=== PATIENT | female | born 1995 | race Caucasian/White ===

== ENCOUNTER 2016-05-16 11:07 | Outpatient (CLI) | payer OTHER ==
--- NOTE | 2016-05-16 11:47 | Non Stress Test Report ---
Non Stress Test Datetime Report Generated by CPN: 05/16/2016 11:47 DEMOGRAPHIC EGA NST: 34.3 INDICATION Indication for Study: Ordered by Provider MONITORING Monitor Explained: Monitor Explained; Test Explained; Patient Verbalized Understanding Time on Monitor: 05/16/2016 11:17 Time off Monitor: 05/16/2016 11:44 NST Duration: 27 NST INTERVENTIONS NST Interventions: PO Hydration Physician Notified NST: H Alex CNM BABY A: [id number] BABY A Movement : Present Contraction Frequency : none FHR Baseline : 135 Accelerations : 15X15 Decelerations : None Variability : Moderate 6-25bpm NST Review: Meets Criteria for Reactive NST NST Review and Verified By : Dave Toth RN NST Results: Reactive NST REPORT Report Trigger: Send Report
--- NOTE | 2016-05-19 11:11 | Antepartum Discharge Summary ---
Antepartum DC Datetime Report Generated by CPN: 05/19/2016 11:11 DIET/ACTIVITY/RESTRICTIONS Diet: Regular (05/16/2016 11:37:Deangelo Anitha, RN) Activity: Normal Activity (05/16/2016 11:37:Deangelo Anitha, RN) Activity Restrictions: No Exercising (05/16/2016 11:37:Deangelo Anitha, RN) TEACHING/INSTRUCTIONS/REFERRALS Instructions Given To: PT (05/16/2016 11:37:Deangelo Anitha, RN) Instructions Understood: Patient Verbalized Understanding; Support Person Verbalized Understanding (05/16/2016 11:37:Deangelo Welsh RN) Referrals: None (05/16/2016 11:37:Deangelo Welsh RN) Educational Materials- Other: [employer] (05/16/2016 11:37:Deangelo Welsh RN) DISCHARGE INFORMATION Discharged AMA: No (05/16/2016 11:37:Deangelo Welsh RN) Discharge Date/Time: 05/16/2016 11:50 (05/16/2016 11:37:Deangelo Welsh RN) Discharged To: Home (05/16/2016 11:37:Deangelo Welsh RN) Discharge Provider Name: Alex (05/16/2016 11:37:Deangelo Welsh RN) Accompanied By: Friend (05/16/2016 11:37:Deangelo Welsh RN) Discharge Method: Ambulatory (05/16/2016 11:37:Deangelo Welsh RN) Condition: Stable (05/16/2016 11:37:Deangelo Welsh RN) FOLLOW UP INFORMATION Follow Up With: [facility] (05/16/2016 11:37:Deangelo Welsh RN) Follow Up On: As Scheduled (05/16/2016 11:37:Deangelo Welsh RN) Follow Up Phone Number: [facility] - (05/16/2016 11:37:Deangelo Welsh RN) Comments: Pt discharged for reactive NST. Pt denies complaints, no distress noted. Ambulates without difficulty, agrees with plan of care, and understands instructions on when to return to hospital and s/s to report. (05/16/2016 11:37:Deangelo Welsh RN) GENERAL INSTR-CALL PROVIDER IF: Contractions: Contractions or cramps become more frequent than 8 in one hour or 4 in 20 minutes; Regular painful contractions every 5 minutes or less for one hour. Time your contractions from the beginning of one to the beginning of the next (05/16/2016 11:37:Deangelo Welsh RN) Pressure: Pressure in your vagina or lower abdomen that may feel like the baby is pushing down (05/16/2016 11:37:Deangelo Welsh RN) Period Like Cramps: Period-like cramps or low dull backache that may come and go (05/16/2016 11:37:Deangelo Welsh RN) Cramps/Diarrhea: Abdominal cramps that may be accompanied by diarrhea (05/16/2016 11:37:Deangelo Welsh RN) Gush of Fluid/Blood: Gush of fluid or blood from your vagina (it is normal to have spotting after vaginal exam or intercourse) (05/16/2016 11:37:Deangelo Welsh RN) Vaginal Discharge: Change in the type or amount of vaginal discharge (05/16/2016 11:37:Deangelo Welsh RN) Decreased Movement: Your baby is not moving as much as usual- 4 movements in 1 hour after drinking and resting on side (05/16/2016 11:37:Deangelo Welsh RN) Temperature: Temperature greater than 100.0(F) orally (05/16/2016 11:37:Deangelo Welsh RN) Hypertension Signs/Symptoms: Severe headache which is not relieved 30 minutes after taking Tylenol(Acetaminophen); Blurry vision or spots before your eyes; Severe heartburn or pain on the upper right side of your abdomen that is not relieved by an antacid; Increased swelling in your face, hands or feet (05/16/2016 11:37:Deangelo Welsh RN) Urinary Output: Decreased urinary output or dark colored urine (05/16/2016 11:37:Deangelo Welsh RN) ADDITIONAL INSTRUCTIONS N/V [place]/Crackers: Keep dry toast/crackers with you to munc on (05/16/2016 11:37:Deangelo Welsh RN) N/V Frequent Meals: Eat small frequent meals (05/16/2016 11:37:Deangelo Welsh RN) N/V Empty Stomach: Try to keep something in your stomach (don't let your stomach get empty) (05/16/2016 11:37:Deangelo Welsh RN) N/V Time Getting Up: Take your time getting up (05/16/2016 11:37:Deangelo Welsh RN) N/V Avoid Smells: Avoid smells that make you feel sick (05/16/2016 11:37:Deangelo Welsh RN) Travel Seatbelts: Wear seatbelts or safety/lap belts (05/16/2016 11:37:Deangelo Welsh RN) Travel Walk Frequently: Walk frequently, every 1-2 hours (05/16/2016 11:37:Deangelo Welsh RN) Travel Comfort Clothes: Wear clothing that does not constrict and comfortable shoes (05/16/2016 11:37:Deangelo Welsh RN) Travel Light Snack: Keep a light snack (e.g. dry crackers) with you at all times to prevent nausea (05/16/2016 11:37:Deangelo Welsh RN) Travel Hydration: Drink plenty of water, low sodium and noncaffeinated drinks (05/16/2016 11:37:Deangelo Welsh RN) Travel Medications: DO NOT take any medication that is not approved by your physician first (05/16/2016 11:37:Deangelo Welsh RN) Travel PN Records: Always keep a copy of your medical record with you just in case (05/16/2016 11:37:Deangelo Welsh RN) Edema Avoid Standing: Avoid standing for long periods, keep legs up when you can (05/16/2016 11:37:Deangelo Welsh RN) Edema Rest on Side: When resting, lie on your side (left is best) (05/16/2016 11:37:Deangelo Welsh RN) Edema Limit Sodium: Limit the amount of salty foods you eat (05/16/2016 11:37:Deangelo Welsh RN) Edema Support Hose: Try to wear support hose as much as possible (05/16/2016 11:37:Deangelo Welsh RN) Exercise Overheating: Avoid situations that would cause you to become overheated (05/16/2016 11:37:Deangelo Welsh RN) Exercise Weather: Exercise outdoors only if the weather is reasonable and not too hot (05/16/2016 11:37:Deangelo Welsh RN) Exercise Exertion: Do not over exert yourself when you exercise (05/16/2016 11:37:Deangelo Welsh RN) Exercise Hydration: Drink plenty of fluids, especially water (05/16/2016 11:37:Deangelo Welsh RN) Exercise Support: Wear good support hose, bra and shoes when exercising (05/16/2016 11:37:Deangelo Welsh RN) Varicose Veins Instructions: Do not stand for long periods of time (05/16/2016 11:37:Deangelo Welsh RN) Varicose Veins Elevate Sit: Try to keep your legs elevated when you are sitting (05/16/2016 11:37:Deangelo Welsh RN) Varicose Veins Elevate Lying: When lying down, keep your legs elevated (05/16/2016 11:37:Deangelo Welsh RN) Varicise Veins Non Binding: When wearing stockings or socks, make sure they are not too tight and bind your legs (05/16/2016 11:37:Deangelo Welsh RN) Varicose Veins Support: Wear support hose/stockings at all times (05/16/2016 11:37:Deangelo Welsh RN) Varicose Veins Periodic Move: If you have a job where you sit a lot, get up periodically and walk around (05/16/2016 11:37:Deangelo Welsh RN)
--- NOTE | 2016-05-19 11:12 | L&D General Admission ---
General Admit Datetime Report Generated by CPN: 05/19/2016 11:11 INFORMATION Patient Age: 21 (05/16/2016 11:08:QS system process) EDC: 06/24/2016 00:00 (05/16/2016 11:20:Deangelo Anitha, RN) : 1 (05/16/2016 11:20:Deangelo Anitha, RN) Para: 0 (05/16/2016 11:20:Deangelo Anitha, RN) CARE Height (in): 61 (05/16/2016 11:19:QS system process) ALLERGIES Medication Allergies: No Known Allergies (05/16/2016) (05/16/2016 11:19:QS system process) DEMOGRAPHICS Address: [address] [place] [id number] (05/16/2016 11:08:QS system process) Zipcode: [address] (05/16/2016 11:08:QS system process) Home (05/16/2016 11:08:QS system process) N: [id number] (05/16/2016 11:08:QS system process) Next of Kin Name: ELVIRA CASTELLANOS (05/16/2016 11:08:QS system process) Next of Kin (05/16/2016 11:08:QS system process) Next of Kin Relationship: SPO (05/16/2016 11:08:QS system process) Date of : 1995 (05/16/2016 11:08:QS system process) Marital Status: (05/16/2016 11:08:QS system process) Sex: Female (05/16/2016 11:08:QS system process) Race: (05/16/2016 11:08:QS system process) Ethnicity: Non- or (05/16/2016 11:08:QS system process) L[employer]-Day: [employer]ism (05/16/2016 11:08:QS system process)
--- NOTE | 2016-05-19 11:12 | L&D Discharge Summary ---
OB Discharge Summary Datetime Report Generated by CPN: 05/19/2016 11:12 DISCHARGE DIAGNOSIS Diagnosis/Symptoms: Other Diagnoses/Symptoms Other: Reactive NST Gestation: 34.3 Parity: 0 DIET/ACTIVITY/RESTRICTIONS Diet: Regular Activity: Normal Activity Activity Restrictions: No Exercising TEACHING/INSTRUCTIONS/REFERRALS Instructions Given To: PT Instructions Understood: Patient Verbalized Understanding; Support Person Verbalized Understanding Referrals: None Educational Materials- Other: [employer] DISCHARGE INFORMATION Discharged AMA: No Discharge Date/Time: 05/16/2016 11:50 Discharged To: Home Discharge Provider Name: Alex Accompanied By: Friend Discharge Method: Ambulatory Condition: Stable FOLLOW UP INFORMATION Follow Up With: [facility] Follow Up On: As Scheduled Follow Up Phone Number: [facility] - Comments: Pt discharged for reactive NST. Pt denies complaints, no distress noted. Ambulates without difficulty, agrees with plan of care, and understands instructions on when to return to hospital and s/s to report. GENERAL INSTR-CALL PROVIDER IF: Contractions: Contractions or cramps become more frequent than 8 in one hour or 4 in 20 minutes; Regular painful contractions every 5 minutes or less for one hour. Time your contractions from the beginning of one to the beginning of the next Pressure: Pressure in your vagina or lower abdomen that may feel like the baby is pushing down Period Like Cramps: Period-like cramps or low dull backache that may come and go Cramps/Diarrhea: Abdominal cramps that may be accompanied by diarrhea Gush of Fluid/Blood: Gush of fluid or blood from your vagina (it is normal to have spotting after vaginal exam or intercourse) Vaginal Discharge: Change in the type or amount of vaginal discharge Decreased Movement: Your baby is not moving as much as usual- 4 movements in 1 hour after drinking and resting on side Temperature: Temperature greater than 100.0(F) orally
== END 2016-05-16 11:49 | disposition home or self-care (01) ==
LOC: LC 11:07
PROVIDERS: ATTEND Obstetrics & Gynecology
PROC: 4A1HXCZ Monitoring of Products of Conception, Cardiac Rate, External Approach (ICD-10-PCS; principal; 2016-05-16)
DX: Z34.93 Encounter for supervision of normal pregnancy, unspecified, third trimester (principal); Z36 Encounter for antenatal screening of mother; Z3A.34 34 weeks gestation of pregnancy
CPT/HCPCS: 59025

== ENCOUNTER 2016-06-06 11:11 | Outpatient (CLI) | payer OTHER ==
--- NOTE | 2016-06-06 11:46 | Non Stress Test Report ---
Non Stress Test Datetime Report Generated by CPN: 06/06/2016 11:46 DEMOGRAPHIC EGA NST: 37.3 INDICATION Indication for Study: Ordered by Provider Indication for Study (NST) Other: repeat NST MONITORING Monitor Explained: Monitor Explained; Test Explained; Patient Verbalized Understanding Time on Monitor: 06/06/2016 11:20 Time off Monitor: 06/06/2016 11:42 NST Duration: 22 NST INTERVENTIONS NST Interventions: PO Hydration Physician Notified NST: Dr. Cortes BABY A: [id number] BABY A Movement : Present Contraction Frequency : 0 FHR Baseline : 125 Accelerations : 15X15 Decelerations : None Variability : Moderate 6-25bpm NST Review: Meets Criteria for Reactive NST NST Review and Verified By : CHACHA Schaeffer Results: Reactive NST REPORT Report Trigger: Send Report
== END 2016-06-06 11:44 | disposition home or self-care (01) ==
LOC: LC 11:11
PROVIDERS: ATTEND Obstetrics & Gynecology
PROC: 4A1HXCZ Monitoring of Products of Conception, Cardiac Rate, External Approach (ICD-10-PCS; principal; 2016-06-06)
DX: Z34.93 Encounter for supervision of normal pregnancy, unspecified, third trimester (principal); Z36 Encounter for antenatal screening of mother; Z3A.37 37 weeks gestation of pregnancy
CPT/HCPCS: 59025

== ENCOUNTER 2016-06-16 19:50 | Inpatient (IN) | payer OTHER ==
[2016-06-16 20:23] LABS: AMNISURE (ROM) POSITIVE (NEGATIVE)
[2016-06-16] MEDS ORDERED: RINGERS SOLUTION,LACTATED 1,000 ML IV ONE (20:25)
[2016-06-16] MEDS: RINGERS SOLUTION,LACTATED 1,000 ML IV PRN (20:30)
[2016-06-16 20:41] LABS: APPEARANCE,URINE SLIGHTLY-CLOUDY; BILIRUBIN,URINE NEGATIVE (NEGATIVE); GLUCOSE, URINE 150 mg/dL (NEGATIVE); KETONES,URINE NEGATIVE (NEGATIVE); LEUKOCYTE ESTERASE,URINE NEGATIVE (NEGATIVE); NITRITE,URINE NEGATIVE (NEGATIVE); PROTEIN,URINE 30 mg/dL (NEGATIVE); URINE SPECIFIC GRAVITY 1.014; UROBILINOGEN,URINE NEGATIVE mg/dL (<2.0)
[2016-06-16 20:57] LABS: URINE BARBITURATES SCREEN NEGATIVE; URINE METHADONE SCREEN NEGATIVE; URINE OPIATES LOW NEGATIVE; URINE PHENCYCLIDINE SCREEN NEGATIVE
[2016-06-16 21:57] LABS: ABSOLUTE EOSINOPHILS # (AUTO) 0.1 10^3/uL (0.0-0.6); ABSOLUTE LYMPHOCYTES (AUTO) 1.8 10^3/uL (0.5-4.7); ABSOLUTE MONOCYTES (AUTO) 0.6 10^3/uL (0.1-1.4); ABSOLUTE NEUT (AUTO) 8.9 10^3/uL (1.7-8.2); BASOPHILS % (AUTO) 0.3 % (0-2); EOSINOPHILS % (AUTO) 1.1 % (0-6); HEMATOCRIT 34.7 % (36.0-47.0); HEMOGLOBIN 11.8 g/dL (12.0-15.5); HGB HCT DIFFERENCE 0.7; LYMPHOCYTES % (AUTO) 15.9 % (13-45); MEAN CORPUSCULAR HEMOGLOBIN 32.3 pg (27.0-33.4); MEAN CORPUSCULAR HGB CONC 34.1 g/dL (32.0-36.0); MEAN CORPUSCULAR VOLUME 95 fl (80-97); MONOCYTES % (AUTO) 5.1 % (3-13); RED BLOOD COUNT 3.67 10^6/uL (3.72-5.28); RED CELL DISTRIBUTION WIDTH 14.6 % (11.5-14.0); SEGMENTED NEUTROPHILS % (AUTO) 77.6 % (42-78); WHITE BLOOD COUNT 11.4 10^3/uL (4.0-10.5)
--- NOTE | 2016-06-16 22:01 | L&D Flow Sheet ---
LD Flowsheet Datetime Report Generated by CPN: 06/16/2016 22:00 Datetime: 06/16/2016 21:49 Temperature (F): 98.3 (Marily Marlatt, RN) Temperature (C): 36.8 (QS system process) Datetime: 06/16/2016 21:46 NBP Sys/Kelsi/Mean (mmHg): 104 (QS system process) : 58 (QS system process) : 76 (QS system process) Pulse: 82 (QS system process) Datetime: 06/16/2016 21:30 Monitor Mode: External (Marily Marlatt, RN) Frequency (min): irreg (Marily Marlatt, RN) Quality: Mild (Marily Marlatt, RN) Duration (sec): 60-120 (Marily Marlatt, RN) Resting Tone (Palpate): Relaxed (Marily Marlatt, RN) Monitor Mode: External US (Marily Marlatt, RN) FHR Baseline Rate : 140 (Marily Marlatt, RN) Variability: Moderate 6-25 bpm (Marily Marlatt, RN) Accelerations: Prolonged (Marily Marlatt, RN) Decelerations: None (Marily Marlatt, RN) Datetime: 06/16/2016 21:12 I/O Interventions: Up to BR (Marily Marlatt, RN) Datetime: 06/16/2016 21:06 NBP Sys/Kelsi/Mean (mmHg): 115 (QS system process) : 62 (QS system process) : 81 (QS system process) Pulse: 90 (QS system process) Datetime: 06/16/2016 21:00 Monitor Mode: External; Palpation (Marily Moscoso RN) Quality: Mild (Marily Moscoso RN) Resting Tone (Palpate): Relaxed (Marily Moscoso RN) Contraction Comments: TOCO adjusted to help find contractions, none noted on monitor (Marily Moscoso RN) Monitor Mode: External US (Marily Moscoso RN) FHR Baseline Rate : 135 (Marily Moscoso RN) Variability: Moderate 6-25 bpm (Marily Moscoso, RN) Accelerations: 15X15 (Marily Moscoso, RN) Decelerations: None (Marily Moscoso RN) Datetime: 06/16/2016 20:49 Monitor Interventions for UA: [place] Adjusted (Marily Moscoso RN) Datetime: 06/16/2016 20:35 NBP Sys/Kelsi/Mean (mmHg): 123 (QS system process) : 79 (QS system process) : 95 (QS system process) Pulse: 88 (QS system process) Datetime: 06/16/2016 20:30 Monitor Mode: External; Palpation (Marily Moscoso RN) Quality: Mild (Marily Moscoso RN) Resting Tone (Palpate): Relaxed (Marily Moscoso RN) Contraction Comments: unable to trace contractions (Marily Moscoso RN) Monitor Mode: External US (Marily Moscoso RN) FHR Baseline Rate : 140 (Marily Moscoso RN) Variability: Moderate 6-25 bpm (Marily Moscoso RN) Accelerations: 15X15 (Marily Moscoso RN) Comments: spontaneous decel (Marily Moscoso RN) IV/Blood Work: IV Started; IV Bolus Started (Annotations: 18g LFA) (Hailey Mercer) Datetime: 06/16/2016 20:28 Dilatation (cm): 1.0 (Marily Moscoso RN) Effacement (%): 70 (Marily Moscoso RN) Station: -3 (Marily Moscoso RN) Exam by: Dr. Holloway (Marily Moscoso RN) Communication: RN at Bedside; Provider at Bedside (Marily Moscoso RN) Datetime: 06/16/2016 20:14 Patient Position/Activity: Left Lateral; Low Fowlers (Marily Moscoso RN) Datetime: 06/16/2016 20:13 Patient Position/Activity: Hands-Knees (Marily Marlatt, RN) Datetime: 06/16/2016 20:12 Patient Position/Activity: Left Lateral (Marily Marlatt, RN) Datetime: 06/16/2016 20:04 NBP Sys/Kelsi/Mean (mmHg): 115 (QS system process) : 71 (QS system process) : 85 (QS system process) Pulse: 105 (QS system process) Datetime: 06/16/2016 20:02 Patient Position/Activity: Right Lateral (Marily Moscoso RN) Datetime: 06/16/2016 20:00 Pain Scale: 2 (Marily Moscoso RN) Pain Presence: Intermittent (Marily Moscoso RN) Pain Type: Cramping; Ache (Marily Moscoso RN) Pain Location: Back (Marily Moscoso RN) Pain Goal: 1 (Marily Moscoso RN) Pain Relief Measures: Comfort Measures (Marily Moscoso RN) Pain Coping: Talking Through Contractions (Marily Moscoso RN) Vaginal Bleeding: None (Marily Moscoso RN) Level of Consciousness: Fully Conscious (Marily Moscoso RN) DTR's/Clonus: DTRs 2+; No Clonus (Marily Moscoso RN) Headache: Denies (Marily Moscoso RN) Breath Sounds, Left: Clear and Equal (Marily Moscoso RN) Breath Sounds, Right: Clear and Equal (Marily Moscoso RN) Nausea/Vomiting: Denies (Marily Moscoso RN) RUQ Epigastric Pain: Denies (Marily Moscoso RN) Instructional Method: Demo; Verbal; Patient Instructed; Family/Support Person Instructed; Verbalized Understanding (Marily Moscoso RN) Plan of Care: Plan of Care Discussed; Vaginal Delivery; Labor (Marily Moscoso RN) Unit Routine: [place] to Room; Call Wall; Bed; Monitoring (Marily Moscoso RN) Labor/Induction: Labor Stages; Interventions (Marily Moscoso RN) Pain Management: Pain Scale/Goals (Marily Moscoso RN)
--- NOTE | 2016-06-16 22:04 | L&D Progress Notes ---
PROGRESS NOTES Datetime Report Generated by CPN: 06/16/2016 22:04 PROGRESS NOTE Impression: Normal Progression of Labor Procedures: Sterile Vag Exam Plan: Continue Present Management; Induction; Cervical Ripening Informed Consent Obtained: Vaginal Delivery; Risks, Benefits and Alternatives Discussed Informed Consent Obtained: Vaginal Delivery; Section Delivery; Induction of Labor; Risks, Benefits and Alternatives Discussed Vital Signs : Reviewed; Within Normal Limits Comment: IOL at 38+6ega for PROM at term. Cooks catheter placed for cervical ripening. Pitocin per low dose protocol initiated for cervical ripening and IOL as well. Pelvis adequate for TAWNY. EFW 7.5#. Anticipate . VAGINAL EXAM Dilatation: 1 Dilatation: 1 Effacement: 70 Effacement: 70 Station: -2 Station: -2 Contractions: irreg Contractions: irreg MEMBRANES Pooling: Positive [place] Results: Positive Membranes: Ruptured Amniotic Fluid Color: Clear FETUS A FHR - Baseline: 130 Monitoring: External US Variability: Moderate 6-25bpm Accelerations: 15X15 Decelerations: None FHR Category: Category I Presentation: Vertex SIGNATURE SIGNATURE: [id number] SIGNATURE: [id number] SIGNATURE: [id number] Signature: with User ID: [email or web address]
[2016-06-16] MEDS ORDERED: NALBUPHINE HCL INJ 10 MG/1 ML AMPULE INJ ONE (22:07)
[2016-06-16] MEDS ORDERED: OXYTOCIN/NORMAL SALINE 20 UNIT/1,000 ML RTUINJ ONE (22:08)
[2016-06-16] MEDS: OXYTOCIN/NORMAL SALINE 20 UNIT/1,000 ML RTUINJ IV PRN (22:22)
[2016-06-17] MEDS ORDERED: FENTANYL/BUPIVACAINE/NS/PF 200 MCG/100 ML RTUINJ EPI ONE (03:53)
[2016-06-17] MEDS ORDERED: BUPIVACAINE HCL 0.25 % INJ/PF (2.5 MG/1 ML) 30 ML VIAL ONE (03:53)
[2016-06-17] MEDS ORDERED: EPHEDRINE SULFATE INJ 50 MG/1 ML AMPULE ONE (03:53)
[2016-06-17] MEDS ORDERED: BENZOIN/ALOE VERA/STORAX/TOLU TINCTURE 60 ML TP PRN (04:33)
[2016-06-17] MEDS ORDERED: EPHEDRINE SULFATE INJ 50 MG/1 ML AMPULE IV PRN (04:33)
[2016-06-17] MEDS ORDERED: EPHEDRINE SULFATE INJ 50 MG/1 ML AMPULE IV ONE (04:33)
[2016-06-17] MEDS ORDERED: BUPIVACAINE HCL 0.25 % INJ/PF (2.5 MG/1 ML) 30 ML VIAL INFIL ONE (04:33)
[2016-06-17] MEDS ORDERED: MISOPROSTOL 0.2 MG TABLET ONE ×2 (05:35→10:19)
[2016-06-17] MEDS ORDERED: LIDOCAINE 1% INJ-PF (10 MG/ML) 30 ML SDV ONE (05:35)
[2016-06-17] MEDS ORDERED: OXYTOCIN/NORMAL SALINE 0 UNIT/0 ML RTUINJ ONE (05:35)
[2016-06-17] MEDS: OXYTOCIN/NORMAL SALINE 20 UNIT/1,000 ML RTUINJ IV PRN ×2 (05:45→05:46)
[2016-06-17] MEDS: RINGERS SOLUTION,LACTATED 1,000 ML IV PRN ×2 (05:45→05:46)
[2016-06-17] MEDS: FENTANYL/BUPIVACAINE/NS/PF 100 ML EPI PRN ×2 (05:45→05:46)
--- NOTE | 2016-06-17 08:02 | L&D Flow Sheet ---
LD Flowsheet Datetime Report Generated by CPN: 06/17/2016 08:00 Datetime: 06/17/2016 07:55 Monitor Interventions for UA: [place] Adjusted (Ellen Toth, RN) Datetime: 06/17/2016 07:52 Monitor Interventions for UA: [place] Adjusted (Ellen Toth, RN) Datetime: 06/17/2016 07:51 NBP Sys/Kelsi/Mean (mmHg): 97 (QS system process) : 50 (QS system process) : 68 (QS system process) Pulse: 96 (QS system process) LaborFlag: Labor (QS system process) Datetime: 06/17/2016 07:45 Monitor Mode: External (Ellen Toth RN) Frequency (min): 1-3 (Ellen Toth RN) Quality: Mild/Moderate (Ellen Toth RN) Duration (sec): 40-70 (Ellen Toth RN) Resting Tone (Palpate): Relaxed (Ellen Toth RN) Monitor Mode: External US (Ellen Toth RN) FHR Baseline Rate : 135 (Ellen Toth RN) Variability: Moderate 6-25 bpm (Ellen Toth RN) Accelerations: 15X15 (Ellen Toth RN) Decelerations: None (Ellen Toth RN) Pitocin (milliunit): Pitocin Remains (milliunits) @ 8 (Ellen Toth RN) Patient Position/Activity: Left Extreme; Peanut Ball (Ellen Toth RN) Datetime: 06/17/2016 07:30 Monitor Mode: External (Ellen Toth RN) Frequency (min): 1-2 (Ellen Toth RN) Quality: Mild/Moderate (Ellen Toth RN) Duration (sec): 40-60 (Ellen oTth RN) Resting Tone (Palpate): Relaxed (Ellen Toth RN) Monitor Mode: External US (Ellen Toth RN) FHR Baseline Rate : 140 (Ellen Toth RN) Variability: Moderate 6-25 bpm (Ellen Toth RN) Accelerations: 15X15 (Ellen Toth RN) Decelerations: None (Ellen Toth RN) Level of Consciousness: Fully Conscious (Ellen Toth RN) DTR's/Clonus: DTRs 2+; No Clonus (Ellen Toth, RN) Headache: Denies (Ellen Toth RN) Breath Sounds, Left: Clear and Equal (Ellen Toth RN) Breath Sounds, Right: Clear and Equal (Ellen Toth RN) Nausea/Vomiting: Denies (Ellen Toth RN) RUQ Epigastric Pain: Denies (Ellen Toth RN) Pitocin (milliunit): Pitocin Remains (milliunits) @ 8 (Ellen Toth RN) Datetime: 06/17/2016 07:28 Monitor Interventions for UA: [place] Adjusted (Ellen Toth, RN) Datetime: 06/17/2016 07:22 NBP Sys/Kelsi/Mean (mmHg): 94 (QS system process) : 54 (QS system process) : 66 (QS system process) Pulse: 103 (QS system process) LaborFlag: Labor (QS system process) Datetime: 06/17/2016 07:21 Patient Position/Activity: Peanut Ball; Right Extreme (Ellen Toth, RN) Datetime: 06/17/2016 07:19 Monitor Interventions for UA: [place] Adjusted (Ellen Toth, RN) Datetime: 06/17/2016 07:15 Monitor Mode: External (Ellen Toth RN) Frequency (min): 1-2 (Ellen Toth RN) Quality: Mild/Moderate (Ellen Toth, RN) Duration (sec): 40-60 (Ellen Toth RN) Duration Criteria: Less than Two 120 Second Contractions (Ellen Toth RN) Pattern: Normal: <= 5 Contractions in 10 Minutes (Ellen Toth, RN) Resting Tone (Palpate): Relaxed (Ellen Toth, RN) Monitor Mode: External US (Ellen Toth, RN) FHR Baseline Rate : 140 (Ellen Toth RN) Variability: Moderate 6-25 bpm (Ellen Toth, RN) Accelerations: 10X10 (Ellen Toth, RN) Decelerations: None (Ellen Toth, RN) Pitocin (milliunit): Pitocin Remains (milliunits) @ 8 (Ellen Toth RN) Datetime: 06/17/2016 07:00 Respirations: 18 (Hailey Mercer) Monitor Mode: External; Palpation (Hailey Mercer) Monitor Interventions for UA: [place] Adjusted (Hailey Mercer) Frequency (min): 2-3 (Hailey Mercer) Quality: Moderate (Hailey Mercer) Duration (sec): 40-60 (Hailey Mercer) Resting Tone (Palpate): Relaxed (Hailey Mercer) Monitor Mode: External US (Hailey Mercer) Monitor Interventions for FHR: Ultrasound Adjusted (Hailey Mercer) FHR Baseline Rate : 140 (Hailey Mercer) FHR Baseline Changes: No Baseline Change (Hailey Mercer) Variability: Moderate 6-25 bpm (Hailey Mercer) Accelerations: 15X15 (Hailey Mercer) Decelerations: None (Hailey Mercer) Pitocin (milliunit): Pitocin Remains (milliunits) @ (Annotations: 8) (Hailey Mercer) Patient Position/Activity: High Fowlers (Hailey Mercer) LaborFlag: Labor (QS system process) Datetime: 06/17/2016 06:51 NBP Sys/Kelsi/Mean (mmHg): 119 (QS system process) : 61 (QS system process) : 83 (QS system process) Pulse: 110 (QS system process) LaborFlag: Labor (QS system process) Datetime: 06/17/2016 06:45 Respirations: 18 (Hailey Mercer) Monitor Mode: External; Palpation (Hailey Mercer) Frequency (min): 2-3 (Hailey Mercer) Quality: Moderate (Hailey Mercer) Duration (sec): 40-60 (Hailey Mercer) Resting Tone (Palpate): Relaxed (Hailey Mercer) Monitor Mode: External US (Hailey Mercer) Monitor Interventions for FHR: Ultrasound Adjusted (Hailey Mercer) FHR Baseline Rate : 140 (Hailey Mercer) FHR Baseline Changes: No Baseline Change (Hailey Mercer) Variability: Moderate 6-25 bpm (Hailey Mercer) Accelerations: 15X15 (Hailey Mercer) Decelerations: Variable (Hailey Mercer) Pitocin (milliunit): Pitocin Remains (milliunits) @ (Annotations: 8 ) (Hailey Mercer) Patient Position/Activity: High Fowlers (Hailey Mercer) LaborFlag: Labor (QS system process) Datetime: 06/17/2016 06:30 Respirations: 18 (Hailey Mercer) Monitor Mode: External; Palpation (Hailey Mercer) Frequency (min): 2-3 (Hailey Mercer) Quality: Moderate (Hailey Mercer) Duration (sec): 40-70 (Hailey Mercer) Resting Tone (Palpate): Relaxed (Hailey Mecrer) Monitor Mode: External US (Hailey Mercer) Monitor Interventions for FHR: Ultrasound Adjusted (Hailey Mercer) FHR Baseline Rate : 140 (Hailey Mercer) FHR Baseline Changes: No Baseline Change (Hailey Mercer) Variability: Moderate 6-25 bpm (Hailey Mercer) Accelerations: 15X15 (Hailey Mercer) Decelerations: Variable (Hailey Mercer) Pitocin (milliunit): Pitocin Remains (milliunits) @ (Annotations: 8) (Hailey Mercer) Patient Position/Activity: High Fowlers (Hailey Mercer) LaborFlag: Labor (QS system process) Datetime: 06/17/2016 06:21 NBP Sys/Kelsi/Mean (mmHg): 115 (QS system process) : 66 (QS system process) : 83 (QS system process) Pulse: 103 (QS system process) LaborFlag: Labor (QS system process) Datetime: 06/17/2016 06:15 Respirations: 18 (Hailey Mercer) Monitor Mode: External; Palpation (Hailey Mercer) Monitor Interventions for UA: [place] Adjusted (Hailey Mercer) Frequency (min): 2-3 (Hailey Mercer) Quality: Moderate (Hailey Mercer) Duration (sec): 40-50 (Hailey Mercer) Resting Tone (Palpate): Relaxed (Hailey Mercer) Monitor Mode: External US (Hailey Mercer) Monitor Interventions for FHR: Ultrasound Adjusted (Hailey Mercer) FHR Baseline Rate : 140 (Hailey Mercer) FHR Baseline Changes: No Baseline Change (Hailey Merecr) Variability: Moderate 6-25 bpm (Hailey Mercer) Accelerations: 15X15 (Hailey Mercer) Decelerations: None (Hailey Mercer) Pitocin (milliunit): Pitocin Remains (milliunits) @ (Annotations: 8) (Hailey Mercer) Patient Position/Activity: High Fowlers (Hailey Mercer) LaborFlag: Labor (QS system process) Datetime: 06/17/2016 06:00 Pitocin (milliunit): Pitocin Remains (milliunits) @ (Annotations: 8) (Hailey Mercer) Patient Position/Activity: High Fowlers (Hailey Mercer) Datetime: 06/17/2016 05:59 Dilatation (cm): 8.0 (Hailey Mercer) Effacement (%): 80 (Hailey Mercer) Station: 0 (Hailey Mercer) Exam by: Rdaha Mercer Rn (Hailey Mercer) Datetime: 06/17/2016 05:57 Respirations: 18 (Hailey Mercer) Monitor Mode: External; Palpation (Hailey Mercer) Monitor Interventions for UA: [place] Adjusted (Hailey Mercer) Frequency (min): 2-4 (Hailey Mercer) Quality: Moderate (Hailey Mercer) Duration (sec): 40-60 (Hailey Mercer) Resting Tone (Palpate): Relaxed (Hailey Mercer) Monitor Mode: External US (Hailey Mercer) Monitor Interventions for FHR: Ultrasound Adjusted (Hailey Mercer) FHR Baseline Rate : 150 (Hailey Mercer) Variability: Moderate 6-25 bpm (Hailey Mercer) Accelerations: 15X15 (Hailey Mercer) Decelerations: Variable (Hailey Mercer) Comments: rn at the bedside for eval, maternal repositioning (Hailey Mercer) Patient Position/Activity: Right Lateral (Hailey Mercer) LaborFlag: Labor (QS system process) Datetime: 06/17/2016 05:51 NBP Sys/Kelsi/Mean (mmHg): 115 (QS system process) : 54 (QS system process) : 77 (QS system process) Pulse: 96 (QS system process) LaborFlag: Labor (QS system process) Datetime: 06/17/2016 05:45 Respirations: 18 (Hailey Mercer) Monitor Mode: External; Palpation (Hailey Mercer) Monitor Interventions for UA: [place] Adjusted (Hailey Mercer) Frequency (min): 2-4 (Hailey Mercer) Quality: Moderate (Hailey Mercer) Duration (sec): 40-60 (Hailey Mercer) Resting Tone (Palpate): Relaxed (Hailey Mercer) Monitor Mode: External US (Hailey Mercer) Monitor Interventions for FHR: Ultrasound Adjusted (Hailey Mercer) FHR Baseline Rate : 140 (Hailey Mercer) FHR Baseline Changes: No Baseline Change (Hailey Mercer) Variability: Moderate 6-25 bpm (Hailey Mercer) Accelerations: 15X15 (Hailey Mercer) Decelerations: Variable (Hailey Mercer) Pitocin (milliunit): Pitocin Remains (milliunits) @ (Annotations: 8) (Hailey Mercer) Patient Position/Activity: Left Lateral (Hailey Mercer) LaborFlag: Labor (QS system process) Datetime: 06/17/2016 05:30 Respirations: 18 (Hailey Mercer) Monitor Mode: External; Palpation (Hailey Mercer) Monitor Interventions for UA: [place] Adjusted (Hailey Mercer) Frequency (min): 2-3 (Hailey Mercer) Quality: Moderate (Haiely Mercer) Duration (sec): 40-60 (Hailey Mercer) Resting Tone (Palpate): Relaxed (Hailey Mercer) Monitor Mode: External US (Hailey Mercer) Monitor Interventions for FHR: Ultrasound Adjusted (Hailey Mercer) FHR Baseline Rate : 140 (Hailey Mercer) FHR Baseline Changes: No Baseline Change (Hailey Mercer) Variability: Moderate 6-25 bpm (Hailey Mercer) Accelerations: 15X15 (Hailey Mercer) Decelerations: Variable (Hailey Mercer) Pitocin (milliunit): Pitocin Remains (milliunits) @ (Annotations: 8) (Hailey Mercer) Patient Position/Activity: Left Lateral (Hailey Mercer) LaborFlag: Labor (QS system process) Datetime: 06/17/2016 05:22 Dilatation (cm): 8.0 (Hailey Mercer) Effacement (%): 80 (Hailey Mercer) Station: 0 (Hailey Mercer) Exam by: Radha Mercer Rn (Hailey Mercer) Datetime: 06/17/2016 05:20 NBP Sys/Kelsi/Mean (mmHg): 106 (QS system process) : 59 (QS system process) : 77 (QS system process) Pulse: 77 (QS system process) LaborFlag: Labor (QS system process) Datetime: 06/17/2016 05:15 Respirations: 18 (Hailey Mercer) Monitor Mode: External; Palpation (Hailey Mercer) Monitor Interventions for UA: [place] Adjusted (Hailey Mercer) Frequency (min): 1.5-2.5 (Hailey Mercer) Quality: Moderate (Hailey Mercer) Duration (sec): 40-60 (Hailey Mercer) Resting Tone (Palpate): Relaxed (Hailey Mercer) Monitor Mode: External US (Hailey Mercer) Monitor Interventions for FHR: Ultrasound Adjusted (Hailey Mercer) FHR Baseline Rate : 140 (Hailey Mercer) FHR Baseline Changes: No Baseline Change (Hailey Mercer) Variability: Moderate 6-25 bpm (Hailey Mercer) Accelerations: 15X15 (Hailey Mercer) Decelerations: Variable (Hailey Mercer) Pitocin (milliunit): Pitocin Remains (milliunits) @ (Annotations: 8) (Hailey Mercer) Patient Position/Activity: Left Lateral (Hailey Mecrer) LaborFlag: Labor (QS system process) Datetime: 06/17/2016 05:00 Pitocin (milliunit): Pitocin Remains (milliunits) @ (Annotations: 8) (Hailey Mercer) Datetime: 06/17/2016 04:58 Respirations: 18 (Hailey Mercer) Monitor Mode: External; Palpation (Hailey Mercer) Monitor Interventions for UA: [place] Adjusted (Hailey Mercer) Frequency (min): 1.5-2.5 (Hailey Mercer) Quality: Moderate (Hailey Mercer) Duration (sec): 40-60 (Hailey Mercer) Resting Tone (Palpate): Relaxed (Hailey Mercer) Monitor Mode: External US (Hailey Mercer) Monitor Interventions for FHR: Ultrasound Adjusted (Hailey Mercer) FHR Baseline Rate : 140 (Hailey Mercer) FHR Baseline Changes: No Baseline Change (Hailey Mercer) Variability: Moderate 6-25 bpm (Hailey Mercer) Accelerations: 10X10 (Hailey Mercer) Decelerations: Late (Hailey Mercer) Comments: rn at the bedside for fhr monitor adjustment and maternal repositioning (Hailey Mercer) Patient Position/Activity: Left Lateral (Hailey Mercer) LaborFlag: Labor (QS system process) Datetime: 06/17/2016 04:51 NBP Sys/Kelsi/Mean (mmHg): 112 (QS system process) : 59 (QS system process) : 78 (QS system process) Pulse: 93 (QS system process) LaborFlag: Labor (QS system process) Datetime: 06/17/2016 04:49 Monitor Mode: External; Palpation (Hailey Mercer) Monitor Interventions for UA: [place] Adjusted (Hailey Mercer) Frequency (min): 1.5-2.5 (Hailey Mercer) Quality: Moderate (Hailey Mercer) Duration (sec): 40-60 (Hailey Mercer) Resting Tone (Palpate): Relaxed (Hailey Mercer) Monitor Mode: External US (Hailey Mercer) Monitor Interventions for FHR: Ultrasound Adjusted (Hailey Mercer) FHR Baseline Rate : 145 (Hailey Mercer) FHR Baseline Changes: No Baseline Change (Hailey Mercer) Variability: Moderate 6-25 bpm (Hailey Mercer) Accelerations: 15X15 (Hailey Mercer) Decelerations: Late (Hailey Mercer) Comments: rn at the bedside for late decels and maternal repositioning and eval (Hailey Mercer) Patient Position/Activity: Right Lateral (Hailey Mercer) Datetime: 06/17/2016 04:45 Respirations: 18 (Hailey Mercer) Monitor Mode: External; Palpation (Hailey Mercer) Monitor Interventions for UA: [place] Adjusted (Hailey Mercer) Frequency (min): 2-3 (Hailey Mercer) Quality: Moderate (Hailey Mercer) Duration (sec): 40-60 (Hailey Mercer) Resting Tone (Palpate): Relaxed (Hailey Mercer) Monitor Mode: External US (Hailey Mercer) Monitor Interventions for FHR: Ultrasound Adjusted (Hailey Mercer) FHR Baseline Rate : 135 (Hailey Mercer) FHR Baseline Changes: No Baseline Change (Hailey Mercer) Variability: Moderate 6-25 bpm (Hailey Mercer) Accelerations: 15X15 (Hailey Mercer) Decelerations: None (Hailey Mercer) Pitocin (milliunit): Pitocin Remains (milliunits) @ (Annotations: 8) (Hailey Mercer) Patient Position/Activity: Left Tilt (Hailey Mercer) LaborFlag: Labor (QS system process) Datetime: 06/17/2016 04:30 Pitocin (milliunit): Pitocin Remains (milliunits) @ (Annotations: 8) (Hailey Mercer) Datetime: 06/17/2016 04:29 Respirations: 18 (Hailey Mercer) Monitor Mode: External; Palpation (Hailey Mercer) Monitor Interventions for UA: [place] Adjusted (Hailey Mercer) Frequency (min): 2-3 (Hailey Mercer) Quality: Moderate (Hailey Mercer) Duration (sec): 40-60 (Hailey Mercer) Resting Tone (Palpate): Relaxed (Hailey Mercer) Monitor Mode: External US (Hailey Mercer) Monitor Interventions for FHR: Ultrasound Adjusted (Hailey Mercer) FHR Baseline Rate : 135 (Hailey Mercer) FHR Baseline Changes: No Baseline Change (Hailey Mercer) Variability: Moderate 6-25 bpm (Hailey Mercer) Accelerations: 15X15 (Hailey Mercer) Decelerations: None (Hailey Mercer) Patient Position/Activity: Left Tilt (Hailey Mercer) LaborFlag: Labor (QS system process) Datetime: 06/17/2016 04:20 NBP Sys/Kelsi/Mean (mmHg): 115 (QS system process) : 71 (QS system process) : 88 (QS system process) Pulse: 98 (QS system process) LaborFlag: Labor (QS system process) Datetime: 06/17/2016 04:19 Dilatation (cm): 6.0 (Hailey Mercer) Effacement (%): 70 (Hailey Mercer) Station: -1 (Hailey Mercer) Exam by: Radha Mercer RN (Hailey Mercer) I/O Interventions: Regalado Cath Inserted (Annotations: 14fr) (Hailey Mercer) Datetime: 06/17/2016 04:15 Pitocin (milliunit): Pitocin Remains (milliunits) @ (Annotations: 8) (Hailey Mercer) Datetime: 06/17/2016 04:14 NBP Sys/Kelsi/Mean (mmHg): 118 (QS system process) : 71 (QS system process) : 89 (QS system process) Pulse: 102 (QS system process) FHR Baseline Changes: Unable to Determine (Hailey Mercer) Comments: patient sitting for epidural (Hailey Mercer) Anesthesia Plans: Epidural (Hailey Mercer) Epidural Positioning: Sitting (Hailey Mercer) Epidural Procedure Other: Pump Started (Hailey Mercer) LaborFlag: Labor (QS system process) Datetime: 06/17/2016 04:09 NBP Sys/Kelsi/Mean (mmHg): 129 (QS system process) : 80 (QS system process) : 99 (QS system process) Pulse: 106 (QS system process) Anesthesia Plans: Epidural (Hailey Mercer) Epidural Positioning: Sitting (Hailey Mercer) Epidural Procedure: Cath Placed (Hailey Mercer) LaborFlag: Labor (QS system process) Datetime: 06/17/2016 04:08 Pulse: 103 (QS system process) SpO2 (%): 97 (QS system process) Anesthesia Plans: Epidural (Hailey Mercer) Epidural Positioning: Sitting (Hailey Mercer) Epidural Procedure: Test Dose (Hailey Mercer) LaborFlag: Labor (QS system process) Datetime: 06/17/2016 04:03 Pulse: 105 (QS system process) SpO2 (%): 98 (QS system process) Procedure Type: epidural (Hailey Mercer) Procedure Verify: Correct Patient Identity; Correct Side and Site are Marked; Accurate Procedure Consent Form; Agreement on Procedure to be Done; Correct Patient Position; Relevant Images and Results are Properly Labeled and Displayed; Safety Precautions Based on Patient History or Medication Use (Hailey Mercer) LaborFlag: Labor (QS system process) Datetime: 06/17/2016 04:01 Anesthesia Plans: Epidural (Hailey Mercer) Epidural Positioning: Sitting (Hailey Mercer) Anesthesia Comments: Dr Boston at the bedside (Hailey Mercer) Datetime: 06/17/2016 04:00 Monitor Mode: External; Palpation (Hailey Mercer) Monitor Interventions for UA: [place] Adjusted (Hailey Mercer) Frequency (min): 2-3 (Hailey Mercer) Quality: Moderate (Hailey Mercer) Duration (sec): 40-60 (Hailey Mercer) Resting Tone (Palpate): Relaxed (Hailey Mercer) Monitor Mode: External US (Hailey Mercer) Monitor Interventions for FHR: Ultrasound Adjusted (Hailey Mercer) FHR Baseline Rate : 130 (Hailey Mercer) FHR Baseline Changes: No Baseline Change (Hailey Mercer) Variability: Moderate 6-25 bpm (Hailey Mercer) Accelerations: 15X15 (Hailey Mercer) Decelerations: None (Hailey Mercer) Pitocin (milliunit): Pitocin Remains (milliunits) @ (Annotations: 8 ) (Hailey Mercer) Datetime: 06/17/2016 03:54 Communication Comments: Called Dr. Boston for epidural (Rosalia Hampton, RN) Datetime: 06/17/2016 03:49 Dilatation (cm): 5.5 (Rosalia Lattibeaudeir, RN) Effacement (%): 70 (Hailey Mercer) Station: -1 (Hailey Mercer) Exam by: Dave Mercer RN (Rosalia Lattibeaudeir, RN) Datetime: 06/17/2016 03:47 Patient Care Comments: patient up to the restroom (Hailey Mercer) Datetime: 06/17/2016 03:46 Patient Care Comments: Regalado bulb came out while pt in BR. (Rosalia Lattibeaudeir, RN) Datetime: 06/17/2016 03:45 Respirations: 18 (Hailey Mercer) Monitor Mode: External; Palpation (Hailey Mercer) Monitor Interventions for UA: [place] Adjusted (Hailey Mercer) Frequency (min): 2-3 (Hailey Mercer) Quality: Moderate (Hailey Mercer) Duration (sec): 40-60 (Hailey Mercer) Resting Tone (Palpate): Relaxed (Hailey Mercer) Monitor Mode: External US (Hailey Mercer) Monitor Interventions for FHR: Ultrasound Adjusted (Hailey Mercer) FHR Baseline Rate : 130 (Hailey Mercer) FHR Baseline Changes: No Baseline Change (Hailey Mercer) Variability: Moderate 6-25 bpm (Hailey Mercer) Accelerations: 15X15 (Hailey Mercer) Decelerations: None (Hailey Mercer) Pitocin (milliunit): Pitocin Remains (milliunits) @ (Annotations: 8) (Hailey Mercer) Patient Position/Activity: Right Lateral (Hailey Mercer) LaborFlag: Labor (QS system process) Datetime: 06/17/2016 03:35 NBP Sys/Kelsi/Mean (mmHg): 117 (QS system process) : 78 (QS system process) : 92 (QS system process) Pulse: 91 (QS system process) LaborFlag: Labor (QS system process) Datetime: 06/17/2016 03:33 Patient Care Comments: increased tension on the patients regalado bulb and re-taped to the patients leg. (Hailey Mercer) Datetime: 06/17/2016 03:30 Respirations: 18 (Hailey Mercer) Monitor Mode: External; Palpation (Hailey Mercer) Monitor Interventions for UA: [place] Adjusted (Hailey Mercer) Frequency (min): 2-3 (Hailey Mercer) Quality: Moderate (Hailey Mercer) Duration (sec): 40-60 (Hailey Mercer) Resting Tone (Palpate): Relaxed (Hailey Mercer) Monitor Mode: External US (Hailey Mercer) Monitor Interventions for FHR: Ultrasound Adjusted (Hailey Mercer) FHR Baseline Rate : 140 (Hailey Mercer) FHR Baseline Changes: No Baseline Change (Hailey Mercer) Variability: Moderate 6-25 bpm (Hailey Mercer) Accelerations: 15X15 (Hailey Mercer) Decelerations: None (Hailey Mercer) Pitocin (milliunit): Pitocin Remains (milliunits) @ (Annotations: 8) (Hailey Mercer) Patient Position/Activity: Right Lateral (Hailey Mercer) Procedure Type: epidural (Hailey Mercer) Procedure Verify: Correct Patient Identity; Correct Side and Site are Marked; Accurate Procedure Consent Form; Agreement on Procedure to be Done; Correct Patient Position; Relevant Images and Results are Properly Labeled and Displayed; Safety Precautions Based on Patient History or Medication Use (Hailey Mercer) LaborFlag: Labor (QS system process) Datetime: 06/17/2016 03:16 Respirations: 18 (Hailey Mercer) Monitor Mode: External; Palpation (Hailey Mercer) Monitor Interventions for UA: [place] Adjusted (Hailey Mercer) Frequency (min): 2-3 (Hailey Mercer) Quality: Mild/Moderate (Hailey Mercer) Duration (sec): 40-60 (Hailey Mercer) Resting Tone (Palpate): Relaxed (Hailey Mercer) Monitor Mode: External US (Hailey Mercer) Monitor Interventions for FHR: Ultrasound Adjusted (Hailey Mercer) FHR Baseline Rate : 135 (Hailey Mercer) FHR Baseline Changes: No Baseline Change (Hailey Mercer) Variability: Moderate 6-25 bpm (Hailey Mercer) Accelerations: 15X15 (Hailey Mercer) Decelerations: None (Hailey Mercer) Patient Position/Activity: Right Lateral (Hailey Mercer) LaborFlag: Labor (QS system process) Datetime: 06/17/2016 03:15 Pitocin (milliunit): Pitocin Remains (milliunits) @ (Annotations: 8) (Hailey Mercer) Datetime: 06/17/2016 03:05 NBP Sys/Kelsi/Mean (mmHg): 111 (QS system process) : 73 (QS system process) : 86 (QS system process) Pulse: 89 (QS system process) LaborFlag: Labor (QS system process) Datetime: 06/17/2016 03:00 Respirations: 18 (Hailey Mercer) Monitor Mode: External; Palpation (Hailey Mercer) Monitor Interventions for UA: [place] Adjusted (Hailey Mercer) Frequency (min): 2-4 (Hailey Mercer) Quality: Mild/Moderate (Hailey Mercer) Duration (sec): 40-60 (Ahiley Mercer) Resting Tone (Palpate): Relaxed (Hailey Mercer) Monitor Mode: External US (Hailey Mercer) Monitor Interventions for FHR: Ultrasound Adjusted (Hailey Mercer) FHR Baseline Rate : 135 (Hailey Mercer) FHR Baseline Changes: No Baseline Change (Hailey Mercer) Variability: Moderate 6-25 bpm (Hailey Mercer) Accelerations: 15X15 (Hailey Mercer) Decelerations: None (Hailey Mercer) Pitocin (milliunit): Pitocin Remains (milliunits) @ (Annotations: 8 ) (Hailey Mercer) Patient Position/Activity: Right Lateral (Haileyhoward Mercer) Procedure Type: epidural (Hailey Mercer) Procedure Verify: Correct Patient Identity; Correct Side and Site are Marked; Accurate Procedure Consent Form; Agreement on Procedure to be Done; Correct Patient Position; Addressed Need to Administer Antibiotics or Fluids for Irrigation; Safety Precautions Based on Patient History or Medication Use (Hailey Mercer) LaborFlag: Labor (QS system process) Datetime: 06/17/2016 02:45 Respirations: 18 (Haiely Mercer) Monitor Mode: External; Palpation (Hailey Mercer) Monitor Interventions for UA: [place] Adjusted (Hailey Mercer) Frequency (min): 2-4 (Hailey Mercer) Quality: Mild/Moderate (Hailey Mercer) Duration (sec): 50-70 (Hailey Mercer) Resting Tone (Palpate): Relaxed (Hailey Mercer) Monitor Mode: External US (Hailey Mercer) Monitor Interventions for FHR: Ultrasound Adjusted (Hailey Mercer) FHR Baseline Rate : 130 (Hailey Mercer) FHR Baseline Changes: No Baseline Change (Hailey Mercer) Variability: Moderate 6-25 bpm (Hailey Mercer) Accelerations: 15X15 (Hailey Mercer) Decelerations: None (Hailey Mercer) Pitocin (milliunit): Pitocin Remains (milliunits) @ (Annotations: 8) (Hailey Mercer) Patient Position/Activity: Right Lateral (Hailey Mercer) LaborFlag: Labor (QS system process) Datetime: 06/17/2016 02:35 NBP Sys/Kelis/Mean (mmHg): 111 (QS system process) : 57 (QS system process) : 78 (QS system process) Pulse: 101 (QS system process) LaborFlag: Labor (QS system process) Datetime: 06/17/2016 02:30 Pitocin (milliunit): Pitocin Remains (milliunits) @ (Annotations: 8) (Hailey Mercer) Patient Care Comments: increased tension applied to the regalado bulb and re-taped to the patients leg. (Hailey Mercer) Datetime: 06/17/2016 02:26 Patient Care Comments: patient up to the restroom (Hailey Mercer) Datetime: 06/17/2016 02:15 Respirations: 18 (Hailey Mercer) Monitor Mode: External; Palpation (Hailey Mercer) Monitor Interventions for UA: [place] Adjusted (Hailey Mercer) Frequency (min): 2-3 (Hailey Mercer) Quality: Mild/Moderate (Hailey Mercer) Duration (sec): 40-60 (Hailey Mercer) Resting Tone (Palpate): Relaxed (Hailey Mercer) Monitor Mode: External US (Hailey Mercer) Monitor Interventions for FHR: Ultrasound Adjusted (Hailey Mercer) FHR Baseline Rate : 130 (Hailey Mercer) FHR Baseline Changes: No Baseline Change (Hailey Mercer) Variability: Moderate 6-25 bpm (Hailey Mercer) Accelerations: 10X10 (Hailey Mercer) Decelerations: None (Hailey Mercer) Pitocin (milliunit): Pitocin Remains (milliunits) @ (Annotations: 8) (Hailey Mercer) Patient Position/Activity: Right Lateral (Hailey Mercer) LaborFlag: Labor (QS system process) Datetime: 06/17/2016 02:05 NBP Sys/Kelsi/Mean (mmHg): 111 (QS system process) : 55 (QS system process) : 77 (QS system process) Pulse: 96 (QS system process) LaborFlag: Labor (QS system process) Datetime: 06/17/2016 02:00 Pitocin (milliunit): Pitocin Remains (milliunits) @ (Annotations: 8 ) (Hailey Mercer) Datetime: 06/17/2016 01:59 Respirations: 18 (Hailey Mercer) Monitor Mode: External; Palpation (Hailey Mercer) Monitor Interventions for UA: [place] Adjusted (Hailey Mercer) Frequency (min): 2-4 (Hailey Mercer) Quality: Mild/Moderate (Hailey Mercer) Duration (sec): 40-60 (Hailey Mercer) Resting Tone (Palpate): Relaxed (Hailey Mercer) Monitor Mode: External US (Hailey Mercer) Monitor Interventions for FHR: Ultrasound Adjusted (Hailey Mercer) FHR Baseline Rate : 130 (Hailey Mercer) FHR Baseline Changes: No Baseline Change (Hailey Mercer) Variability: Moderate 6-25 bpm (Hailey Mercer) Accelerations: 15X15 (Hailey Mercer) Decelerations: None (Hailey Mercer) Patient Position/Activity: Right Lateral (Hailey Mercer) LaborFlag: Labor (QS system process) Datetime: 06/17/2016 01:45 Pitocin (milliunit): Pitocin Remains (milliunits) @ (Annotations: 8 ) (Hailey Mercer) Datetime: 06/17/2016 01:44 Respirations: 18 (Hailey Mercer) Monitor Mode: External; Palpation (Hailey Mercer) Monitor Interventions for UA: [place] Adjusted (Hailey Mercer) Frequency (min): 2-4 (Hailey Mercer) Quality: Mild/Moderate (Hailey Mercer) Duration (sec): 50-70 (Hailey Mercer) Resting Tone (Palpate): Relaxed (Hailey Mercer) Monitor Mode: External US (Hailey Mercer) Monitor Interventions for FHR: Ultrasound Adjusted (Hailey Mercer) FHR Baseline Rate : 125 (Hailey Mercer) FHR Baseline Changes: No Baseline Change (Hailey Mercer) Variability: Moderate 6-25 bpm (Hailey Mercer) Accelerations: 15X15 (Hailey Mercer) Decelerations: None (Hailey Mercer) Patient Position/Activity: Right Lateral (Hailey Mercer) LaborFlag: Labor (QS system process) Datetime: 06/17/2016 01:35 NBP Sys/Kelsi/Mean (mmHg): 121 (QS system process) : 74 (QS system process) : 92 (QS system process) Pulse: 93 (QS system process) LaborFlag: Labor (QS system process) Datetime: 06/17/2016 01:30 Pitocin (milliunit): Pitocin Remains (milliunits) @ (Annotations: 8) (Hailey Mercer) Patient Care Comments: increased regalado bulb tension and reapplied tape to secure to patient leg. (Hailey Mercer) Datetime: 06/17/2016 01:29 Respirations: 18 (Hailey Mercer) Monitor Mode: External; Palpation (Hailey Mercer) Monitor Interventions for UA: [place] Adjusted (Hailey Mercer) Frequency (min): 2-4 (Hailey Mercer) Quality: Mild/Moderate (Hailey Mercer) Duration (sec): 50-70 (Hailey Mercer) Resting Tone (Palpate): Relaxed (Hailey Mercer) Monitor Mode: External US (Hailey Mercer) Monitor Interventions for FHR: Ultrasound Adjusted (Hailey Mercer) FHR Baseline Rate : 130 (Hailey Mercer) FHR Baseline Changes: No Baseline Change (Hailey Mercer) Variability: Moderate 6-25 bpm (Hailey Mercer) Accelerations: 10X10 (Hailey Mercer) Decelerations: None (Hailey Mercer) Patient Position/Activity: Right Lateral (Hailye Mercer) LaborFlag: Labor (QS system process) Datetime: 06/17/2016 01:15 Pitocin (milliunit): Pitocin Remains (milliunits) @ (Annotations: 8) (Hailey Mercer) Datetime: 06/17/2016 01:14 Respirations: 18 (Hailey Mercer) Monitor Mode: External; Palpation (Hailey Mercer) Monitor Interventions for UA: [place] Adjusted (Hailey Mercer) Frequency (min): 2-4 (Hailey Mercer) Quality: Mild/Moderate (Hailey Mercer) Duration (sec): 50-70 (Hailey Mercer) Resting Tone (Palpate): Relaxed (Hailey Mercer) Monitor Mode: External US (Hailey Mercer) Monitor Interventions for FHR: Ultrasound Adjusted (Hailey Mercer) FHR Baseline Rate : 130 (Hailey Mercer) FHR Baseline Changes: No Baseline Change (Hailey Mercer) Variability: Moderate 6-25 bpm (Hailey Mercer) Accelerations: 10X10 (Hailey Mercer) Decelerations: None (Hailey Mercer) Patient Position/Activity: Right Lateral (Hailey Mercer) LaborFlag: Labor (QS system process) Datetime: 06/17/2016 01:08 Patient Care Comments: Regalado bulb still in cervix. (Rosalia Lattibjhon, RN) Datetime: 06/17/2016 01:06 Communication Comments: Pt called out stating that she thinks the regalado bulb came out. RN to room to assess. (Rosalia Lattibeaudeir, RN) Datetime: 06/17/2016 01:05 NBP Sys/Kelsi/Mean (mmHg): 128 (QS system process) : 79 (QS system process) : 98 (QS system process) Pulse: 89 (QS system process) LaborFlag: Labor (QS system process) Datetime: 06/17/2016 01:00 Pitocin (milliunit): Pitocin Remains (milliunits) @ (Annotations: 8 ) (Hailey Mercer) Patient Care Comments: increased tension applied to the patients regalado bulb and re-taped to patients leg. (Hailey Mercer) Datetime: 06/17/2016 00:59 FHR Baseline Changes: Unable to Determine (Hailey Mercer) Datetime: 06/17/2016 00:54 Patient Care Comments: patient up to the restroom (Hailey Mercer) Datetime: 06/17/2016 00:45 Pitocin (milliunit): Pitocin Remains (milliunits) @ (Annotations: 8) (Hailey Mercer) Datetime: 06/17/2016 00:44 Respirations: 18 (Hailey Mercer) Monitor Mode: External; Palpation (Hailey Mercer) Monitor Interventions for UA: [place] Adjusted (Hailey Mercer) Monitor Interventions for UA: [place] Adjusted (Rosalia Hampton RN) Frequency (min): 2-5 (Hailey Mercer) Quality: Mild/Moderate (Hailey Mercer) Duration (sec): 50-70 (Hailey Mercer) Resting Tone (Palpate): Relaxed (Hailey Mercer) Monitor Mode: External US (Hailey Mercer) Monitor Interventions for FHR: Ultrasound Adjusted (Hailey Mercer) FHR Baseline Rate : 125 (Hailey Mercer) FHR Baseline Changes: No Baseline Change (Hailey Mercer) Variability: Moderate 6-25 bpm (Hailey Mercer) Accelerations: 15X15 (Hailey Mercer) Decelerations: None (Hailey Mercer) Membrane Status: Ruptured (Rosalia Hampton RN) Membranes Ruptured Date/Time: 06/16/2016 19:30 (Rosalia Hampton RN) Membranes Rupture Method: Spontaneous (Rosalia Hampton RN) Amniotic Fluid Color: Clear (Rosalia Hampton RN) Amniotic Fluid Amount: Small (Rosalia Hampton RN) Amniotic Fluid Odor: Normal (Rosalia Hampton RN) Patient Position/Activity: Left Lateral (Hailey Mercer) LaborFlag: Labor (QS system process) Datetime: 06/17/2016 00:36 NBP Sys/Kelsi/Mean (mmHg): 128 (QS system process) : 80 (QS system process) : 92 (QS system process) Pulse: 93 (QS system process) LaborFlag: Labor (QS system process) Datetime: 06/17/2016 00:30 Pitocin (milliunit): Pitocin Increased to (milliunits) @ (Annotations: 8 ) (Hailey Mercer) Datetime: 06/17/2016 00:29 Respirations: 18 (Hailey Mercer) Monitor Mode: External; Palpation (Hailey Mercer) Monitor Interventions for UA: [place] Adjusted (Hailey Mercer) Frequency (min): 2-4 (Hailey Mercer) Quality: Mild/Moderate (Hailey Mercer) Duration (sec): 40-60 (Hailey Mercer) Resting Tone (Palpate): Relaxed (Hailey Mercer) Monitor Mode: External US (Hailey Mercer) Monitor Interventions for FHR: Ultrasound Adjusted (Hailey Mercer) FHR Baseline Rate : 130 (Hailey Mercer) FHR Baseline Changes: No Baseline Change (Hailey Mercer) Variability: Moderate 6-25 bpm (Hailey Mercer) Accelerations: 10X10 (Hailey Mercer) Decelerations: None (Hailey Mercer) Patient Position/Activity: Left Lateral (Hailey Mercer) LaborFlag: Labor (QS system process) Datetime: 06/17/2016 00:15 Respirations: 18 (Hailey Mercer) Monitor Mode: External; Palpation (Hailey Mercer) Monitor Interventions for UA: [place] Adjusted (Hailey Mercer) Frequency (min): 2-4 (Hailey Mercer) Quality: Mild/Moderate (Hailey Mercer) Duration (sec): 40-60 (Hailey Mercer) Resting Tone (Palpate): Relaxed (Hailey Mercer) Monitor Mode: External US (Hailey Mercer) Monitor Interventions for FHR: Ultrasound Adjusted (Hailey Mercer) FHR Baseline Rate : 125 (Hailey Mercer) FHR Baseline Changes: No Baseline Change (Hailey Mercer) Variability: Moderate 6-25 bpm (Hailey Mercer) Accelerations: 15X15 (Hailey Mercer) Decelerations: None (Hailey Mercer) Patient Position/Activity: Left Lateral (Hailey Mercer) LaborFlag: Labor (QS system process) Datetime: 06/17/2016 00:05 NBP Sys/Kelsi/Mean (mmHg): 133 (QS system process) : 73 (QS system process) : 98 (QS system process) Pulse: 87 (QS system process) LaborFlag: Labor (QS system process) Datetime: 06/17/2016 00:00 Respirations: 18 (Hailey Mercer) Monitor Mode: External; Palpation (Hailey Mercer) Monitor Interventions for UA: [place] Adjusted (Hailey Mercer) Frequency (min): 2-3 (Hailey Mercer) Quality: Mild/Moderate (Hailey Mercer) Duration (sec): 40-60 (Hailey Mercer) Resting Tone (Palpate): Relaxed (Hailey Mercer) Monitor Mode: External US (Hailey Mercer) Monitor Interventions for FHR: Ultrasound Adjusted (Hailey Mercer) FHR Baseline Rate : 130 (Hailey Mercer) FHR Baseline Changes: No Baseline Change (Hailey Mercer) Variability: Moderate 6-25 bpm (Hailey Mercer) Accelerations: 10X10 (Hailey Mercer) Decelerations: None (Hailey Mercer) Patient Position/Activity: Left Lateral (Hailey Mercer) Patient Care Comments: increased tension applied to the patients regalado bulb and re-taped to the patients leg. (Hailey Mercer) LaborFlag: Labor (QS system process) Datetime: 06/16/2016 23:59 Pitocin (milliunit): Pitocin Increased to (milliunits) @ (Annotations: 6) (Hailey Mercer) Datetime: 06/16/2016 23:45 Respirations: 18 (Hailey Mercer) Monitor Mode: External; Palpation (Hailey Mercer) Monitor Interventions for UA: [place] Adjusted (Hailey Mercer) Frequency (min): 2-3 (Hailey Mercer) Quality: Mild/Moderate (Hailey Mercer) Duration (sec): 50-80 (Hailey Mercer) Resting Tone (Palpate): Relaxed (Hailey Mercer) Monitor Mode: External US (Hailey Mercer) Monitor Interventions for FHR: Ultrasound Adjusted (Hailey Mercer) FHR Baseline Rate : 130 (Hailey Mercer) FHR Baseline Changes: No Baseline Change (Hailey Mercer) Variability: Moderate 6-25 bpm (Hailey Mercer) Accelerations: 15X15 (Hailey Mercer) Decelerations: None (Hailey Mercer) Pitocin (milliunit): Pitocin Remains (milliunits) @ (Annotations: 4 ) (Hailey Mercer) Patient Position/Activity: Left Lateral (Hailey Mercer) LaborFlag: Labor (QS system process) Datetime: 06/16/2016 23:35 NBP Sys/Kelsi/Mean (mmHg): 127 (QS system process) : 69 (QS system process) : 92 (QS system process) Pulse: 80 (QS system process) LaborFlag: Labor (QS system process) Datetime: 06/16/2016 23:30 Respirations: 18 (Hailey Mercer) Monitor Mode: External; Palpation (Hailey Mercer) Monitor Interventions for UA: [place] Adjusted (Hailey Mercer) Frequency (min): 2-3 (Hailey Mercer) Quality: Mild/Moderate (Hailey Mercer) Duration (sec): 50-70 (Hailey Mercer) Resting Tone (Palpate): Relaxed (Hailey Mercer) Monitor Mode: External US (Hailey Mercer) Monitor Interventions for FHR: Ultrasound Adjusted (Hailey Mercer) FHR Baseline Rate : 130 (Hailey Mercer) FHR Baseline Changes: No Baseline Change (Hailey Mercer) Variability: Moderate 6-25 bpm (Hailey Mercer) Accelerations: 10X10 (Hailey Mercer) Decelerations: None (Hailey Mercer) Pitocin (milliunit): Pitocin Remains (milliunits) @ (Annotations: 4 ) (Hailey Mercer) Patient Position/Activity: Left Lateral (Hailey Mercer) LaborFlag: Labor (QS system process) Datetime: 06/16/2016 23:15 Respirations: 18 (Hailey Mercer) Monitor Mode: External; Palpation (Hailey Mercer) Frequency (min): 2-3 (Hailey Mercer) Quality: Mild/Moderate (Hailey Mercer) Duration (sec): 50-60 (Hailey Mercer) Resting Tone (Palpate): Relaxed (Hailey Mercer) Monitor Mode: External US (Hailey Mercer) Monitor Interventions for FHR: Ultrasound Adjusted (Hailey Mercer) FHR Baseline Rate : 130 (Hailey Mercer) Variability: Moderate 6-25 bpm (Hailey Mercer) Accelerations: 10X10 (Hailey Mercer) Decelerations: None (Hailey Mercer) Pitocin (milliunit): Pitocin Remains (milliunits) @ (Annotations: 4) (Hailey Mercer) Patient Position/Activity: Left Lateral (Hailey Mercer) LaborFlag: Labor (QS system process) Datetime: 06/16/2016 23:10 Communication: Report Given to @ Dave Mercer RN (Marily Moscoso RN) Communication Comments: care relinguished (Marily Moscoso RN) Datetime: 06/16/2016 23:05 NBP Sys/Kelsi/Mean (mmHg): 116 (QS system process) : 60 (QS system process) : 82 (QS system process) Pulse: 93 (QS system process) LaborFlag: Labor (QS system process) Datetime: 06/16/2016 23:00 Monitor Mode: External (Marily Moscoso RN) Frequency (min): 1-5 (Marily Moscoso RN) Quality: Mild (Marily Moscoso RN) Duration (sec): 60-80 (Marily Moscoso RN) Resting Tone (Palpate): Relaxed (Marily Marlatt, RN) Monitor Mode: External US (Marily Moscoso RN) FHR Baseline Rate : 130 (Marily Moscoso, CHACHA) Variability: Moderate 6-25 bpm (Marily Moscoso RN) Pitocin (milliunit): Pitocin Remains (milliunits) @ (Annotations: 4) (Hailey Mercer) Datetime: 06/16/2016 22:57 Patient Care Comments: patient up to the restroom (Hailey Mercer) Datetime: 06/16/2016 22:56 I/O Interventions: Up to BR (Marily Moscoso, RN) Datetime: 06/16/2016 22:45 Frequency (min): 1.5-3 (Marily Moscoso, RN) Quality: Mild (Marily Mendozatt, RN) Duration (sec): 40-60 (Marily Franklatt, RN) Resting Tone (Palpate): Relaxed (Marily Moscoso, RN) Monitor Mode: External US (Marily Moscoso, RN) FHR Baseline Rate : 125 (Marily Mendozatt, RN) Variability: Moderate 6-25 bpm (Marily Mendozatt, RN) Pitocin (milliunit): Pitocin Increased to (milliunits) @ 4 (Marily Moscoso, RN) Datetime: 06/16/2016 22:35 NBP Sys/Kelsi/Mean (mmHg): 129 (QS system process) : 76 (QS system process) : 97 (QS system process) Pulse: 79 (QS system process) LaborFlag: Labor (QS system process) Datetime: 06/16/2016 22:30 Monitor Mode: External (Marily Marlatt, RN) Frequency (min): irreg (Marily Marlatt, RN) Quality: Mild/Moderate (Marily Marlatt, RN) Duration (sec): 50-80 (Marily Marlatt, RN) Resting Tone (Palpate): Relaxed (Marily Marlatt, RN) Monitor Mode: External US (Marily Marlatt, RN) FHR Baseline Rate : 135 (Marily Marlatt, RN) FHR Baseline Changes: No Baseline Change (Marily Marlatt, RN) Variability: Moderate 6-25 bpm (Marily Marlatt, RN) Accelerations: 15X15 (Marily Marlatt, RN) Decelerations: None (Marily Marlatt, RN) Datetime: 06/16/2016 22:15 Pitocin (milliunit): Pitocin Started (milliunits) @ 2 (Marily Marlatt, RN) Datetime: 06/16/2016 22:13 Analgesics/Sedatives: Nubain (mg) @ 10 (Marily Moscoso, RN) Datetime: 06/16/2016 22:06 NBP Sys/Kelsi/Mean (mmHg): 119 (QS system process) : 75 (QS system process) : 92 (QS system process) Pulse: 84 (QS system process) LaborFlag: Labor (QS system process) Datetime: 06/16/2016 22:00 Monitor Mode: External (Marily Moscoso RN) Frequency (min): irreg (Marily Moscoso RN) Quality: Mild (Marily Moscoso RN) Duration (sec): 60-100 (Marily Moscoso RN) Resting Tone (Palpate): Relaxed (Marily Moscoso RN) Monitor Mode: External US (Marily Moscoso RN) FHR Baseline Rate : 150 (Marily Moscoso RN) Variability: Moderate 6-25 bpm (Marily Moscoso RN) Accelerations: Prolonged (Marily Marlatt, RN) Decelerations: None (Marily Moscoso, CHACHA) Patient Care Comments: Cook catheter Regalado bulb placed in cervix by Dr. Holloway. 80ml of NS in both both balloons (Marily Moscoso, CHACHA)
--- NOTE | 2016-06-17 08:32 | L&D Progress Notes ---
PROGRESS NOTES Datetime Report Generated by CPN: 06/17/2016 08:32 PROGRESS NOTE Procedures: Intrauterine Pressure Catheter; Scalp Electrode Informed Consent Obtained: Section Delivery; Risks, Benefits and Alternatives Discussed Comment: In to eval pt after spontaneous decel. FSE/IUPC placed. Discussed r/b/a if need arises. Will give ivf bolus and oxygen now. Pit off. Repositioned. FETUS C SIGNATURE: [id number] Signature: Electronically signed by Malka Lopez MD ([facility]) on 06/17/2016 at 08:31 with User ID: [email or web address]
--- NOTE | 2016-06-17 10:01 | L&D Flow Sheet ---
LD Flowsheet Datetime Report Generated by CPN: 06/17/2016 10:00 Datetime: 06/17/2016 09:47 NBP Sys/Kelsi/Mean (mmHg): 118 (QS system process) : 55 (QS system process) : 79 (QS system process) Pulse: 94 (QS system process) LaborFlag: Labor (QS system process) Datetime: 06/17/2016 09:33 NBP Sys/Kelsi/Mean (mmHg): 123 (QS system process) : 65 (QS system process) : 84 (QS system process) Pulse: 106 (QS system process) LaborFlag: Labor (QS system process) Datetime: 06/17/2016 09:30 Monitor Mode: Internal (Ellen Toth RN) Frequency (min): 1.5-2.5 (Ellen Toth, RN) Quality: Moderate (Ellen Toth, RN) Duration (sec): 60-90 (Ellen Toth, RN) Resting Tone (Palpate): Relaxed (Ellen Toth, RN) Monitor Mode: Internal Scalp Electrode (Ellen Toth, RN) FHR Baseline Rate : 145 (Ellenoksana Toth, RN) Variability: Moderate 6-25 bpm (Ellen Toth, RN) Accelerations: 15X15 (Ellen Navneet, RN) Decelerations: None (Ellenoksana Toth, RN) Datetime: 06/17/2016 09:24 Patient Position/Activity: Peanut Ball; Right Extreme (Ellen Toth, RN) Datetime: 06/17/2016 09:18 NBP Sys/Kelsi/Mean (mmHg): 110 (QS system process) : 59 (QS system process) : 77 (QS system process) Pulse: 96 (QS system process) LaborFlag: Labor (QS system process) Datetime: 06/17/2016 09:15 Monitor Mode: Internal (Ellen Toth RN) Frequency (min): 1-2 (Ellen Toth RN) Quality: Moderate (Ellen Toth RN) Duration (sec): 50-90 (Ellen Toth RN) Resting Tone (Palpate): Relaxed (Ellen Toth RN) Monitor Mode: Internal Scalp Electrode (Ellen Toth RN) FHR Baseline Rate : 145 (Ellen Toth RN) Variability: Moderate 6-25 bpm (Ellen Toth, RN) Accelerations: 15X15 (Ellen Toth, RN) Decelerations: None (Ellen Toth RN) Datetime: 06/17/2016 09:02 NBP Sys/Kelsi/Mean (mmHg): 101 (QS system process) : 55 (QS system process) : 72 (QS system process) Pulse: 91 (QS system process) LaborFlag: Labor (QS system process) Datetime: 06/17/2016 09:00 Monitor Mode: Internal (Ellen Toth RN) Frequency (min): 1-2 (Ellen Toth RN) Quality: Mild/Moderate (Ellen Toth RN) Duration (sec): 50-70 (Ellen Toth RN) Duration Criteria: Less than Two 120 Second Contractions (Ellen Toth RN) Pattern: Normal: <= 5 Contractions in 10 Minutes (Ellen Toth RN) Resting Tone (Palpate): Relaxed (Ellen Toth RN) Monitor Mode: Internal Scalp Electrode (Ellen Toth RN) FHR Baseline Rate : 150 (Ellen Toth RN) Variability: Moderate 6-25 bpm (Ellen Toth, RN) Accelerations: 10X10 (Ellen Toth, RN) Decelerations: Variable (Ellen Toth, RN) Datetime: 06/17/2016 08:49 Patient Position/Activity: Left Extreme; Peanut Ball (Ellen Toth RN) Datetime: 06/17/2016 08:47 NBP Sys/Kelsi/Mean (mmHg): 125 (QS system process) : 63 (QS system process) : 85 (QS system process) Pulse: 87 (QS system process) LaborFlag: Labor (QS system process) Datetime: 06/17/2016 08:45 Monitor Mode: Internal (Ellen Toth RN) Frequency (min): 1-2 (Ellen Toth RN) Quality: Moderate (Ellen Toth RN) Duration (sec): 50-90 (Ellen Toth RN) Resting Tone (Palpate): Relaxed (Ellen Toth RN) Monitor Mode: Internal Scalp Electrode (Ellen Toth RN) FHR Baseline Rate : 160 (Ellen Toth RN) Variability: Moderate 6-25 bpm (Ellen Toth RN) Accelerations: None (Ellen Toth RN) Decelerations: None (Ellen Toth RN) Datetime: 06/17/2016 08:32 NBP Sys/Kelsi/Mean (mmHg): 115 (QS system process) : 65 (QS system process) : 84 (QS system process) Pulse: 95 (QS system process) LaborFlag: Labor (QS system process) Datetime: 06/17/2016 08:30 Monitor Mode: Internal; Palpation (Ellen Toth RN) Frequency (min): 1-2 (Ellen Toth RN) Quality: Moderate (Ellen Toth RN) Duration (sec): 60-90 (Ellen Toth RN) Duration Criteria: Less than Two 120 Second Contractions (Ellen Toth RN) Pattern: Normal: <= 5 Contractions in 10 Minutes (Ellen Toth RN) Resting Tone (Palpate): Relaxed (Ellen Toth RN) Resting Tone IUP (mmHg): 20 (Ellen Toth RN) Intensity IUP (mmHg): 58 (Ellen Toth, RN) Contraction Comments: MVU 290 (Ellen Toth, RN) Monitor Mode: Internal Scalp Electrode (Ellen Toth, RN) FHR Baseline Rate : 190 (Ellen Toth, RN) Variability: Moderate 6-25 bpm (Ellen Toth, RN) Accelerations: None (Ellen Toth, RN) Decelerations: None (Ellen Toth, RN) Datetime: 06/17/2016 08:22 Actions for Decelerations: Oxygen Applied (Ellen Toth, RN) Datetime: 06/17/2016 08:19 IV/Blood Work: New IV Bag Hung (Ellen Toth, RN) Datetime: 06/17/2016 08:17 Respirations: 14 (Ellen Toth RN) Temperature (F): 99.5 (Ellen Toth RN) Temperature (C): 37.5 (QS system process) LaborFlag: Labor (QS system process) Datetime: 06/17/2016 08:15 Monitor Mode: External; Internal; Palpation (Ellen Toth RN) Quality: Mild/Moderate (Ellen Toth RN) Resting Tone (Palpate): Relaxed (Ellen Toth RN) Contraction Comments: contractions not tracing (Ellen Toth RN) Monitor Mode: External US; Internal Scalp Electrode (Ellen Toth RN) FHR Baseline Rate : 180 (Ellen Toth RN) Variability: Moderate 6-25 bpm (Ellen Toth RN) Accelerations: None (Ellen Toth, RN) Datetime: 06/17/2016 08:14 Patient Position/Activity: Peanut Ball; Right Extreme (Ellen Toth RN) Datetime: 06/17/2016 08:11 Monitor Interventions for FHR: FSE Applied (Ellen Toth RN) Datetime: 06/17/2016 08:10 Monitor Interventions for UA: IUPC Inserted (Ellen Toth RN) Datetime: 06/17/2016 08:05 Actions for Decelerations: IV Bolus (Ellen Toth RN) Dilatation (cm): 7.5 (Ellen Toth RN) Effacement (%): 90 (Ellen Toth RN) Station: 0 (Ellen Toth RN) Exam by: Dr. Lopez (Ellen Toth RN) Pitocin (milliunit): Pitocin Discontinued (Ellen Toth RN) Communication Comments: Dr. Lopez and Sofia Garcia CNM at bedside (Ellen Toth RN) Datetime: 06/17/2016 08:03 Comments: spontaneous decelerations (Ellen Toth RN) Patient Position/Activity: Right Lateral (Ellen Toth RN) Datetime: 06/17/2016 08:00 Monitor Mode: External; Palpation (Ellen Toth RN) Resting Tone (Palpate): Relaxed (Ellen Toth RN) Contraction Comments: unable to determine contractions at this time (Ellen Toth RN) Monitor Mode: External US (Ellen Toth RN) FHR Baseline Rate : 140 (Ellen Toth RN) Variability: Moderate 6-25 bpm (Ellen Toth RN) Accelerations: 15X15 (Ellen Toth RN) Decelerations: None (Ellen Toth RN) Pitocin (milliunit): Pitocin Remains (milliunits) @ 8 (Ellen Toth RN)
[2016-06-17] MEDS ORDERED: CEFAZOLIN 2 GM/D5W RTU 2 GM/50 ML RTUPB IV ONE ×2 (10:18→18:00)
[2016-06-17] MEDS ORDERED: CITRIC ACID/SODIUM CITRATE ORAL SOLN 15 ML UDCUP ONE (10:18)
--- NOTE | 2016-06-17 10:18 | L&D Progress Notes ---
PROGRESS NOTES Datetime Report Generated by CPN: 06/17/2016 10:18 PROGRESS NOTE Impression: Arrest of Dilatation/Descent Plan: Deliver- Section Informed Consent Obtained: Section Delivery Comment: No cervical cover operator past 1.5 hrs despite generally adequate ctx pattern. Head more molded and no significant pressure on cervix with ctxs. FETUS A FHR Category: Category I FETUS C SIGNATURE: [id number] Signature: with User ID: [email or web address]
[2016-06-17] MEDS ORDERED: METHYLERGONOVINE MALEATE INJ/PF 0.2 MG/1 ML AMPULE ONE (10:19)
[2016-06-17] MEDS ORDERED: LIDOCAINE 2% INJ-PF (20 MG/ML) 10 ML AMPUL ONE (10:20)
[2016-06-17] MEDS ORDERED: OXYTOCIN 10 UNIT/ML VIAL ONE (10:45)
[2016-06-17] MEDS ORDERED: PROPOFOL INJ 200 MG/20 ML VIAL IV ONE (10:45)
[2016-06-17] MEDS ORDERED: ONDANSETRON HCL INJ/PF 4 MG/2 ML SDV ONE (10:45)
[2016-06-17] MEDS ORDERED: KETAMINE HCL INJ 500 MG/10 ML VIAL ONE (10:45)
[2016-06-17] MEDS ORDERED: MORPHINE SULFATE 10 MG/ML INJ ONE (10:46)
[2016-06-17] MEDS ORDERED: MIDAZOLAM 2 MG/2 ML INJ ONE (10:46)
[2016-06-17] MEDS ORDERED: ACETAMINOPHEN 100 ML IV ONE (11:53)
--- NOTE | 2016-06-17 12:01 | Operative Report ---
Operative Report DATE OF SURGERY: 06/17/16 Operative Report: Primary low transverse cervical section PREOPERATIVE DIAGNOSIS: Arrest of labor POSTOPERATIVE DIAGNOSIS: Deep transverse arrest of labor OPERATION: Primary low transverse cervical section SURGEON: KERRI CASTELAN ANESTHESIA: Epidural TISSUE REMOVED OR ALTERED: Placenta ESTIMATED BLOOD LOSS: 500 mL INTRAOPERATIVE FINDINGS: [place] female in vertex presentation with left occiput transverse position normal uterus tubes and ovaries. Apgars 9 at 1 and 9 at 5 minutes weight was 6 lbs. 14 oz. PROCEDURE: After discussing risks benefits and alternatives of the procedure and obtaining informed consent the patient was taken to the operating room with epidural bolused. Patient was positioned in the dorsal supine position with a leftward tilt. She was then prepped and draped in the usual standard fashion. Pfannenstiel skin incision was made and the abdomen was entered in layers in the usual standard fashion. The C safe knife was used to make a low-transverse hysterotomy incision. The surgeon's hand was entered into the hysterotomy incision and the vertex elevated. Shoulders and body were delivered easily thereafter. Nasopharynx and oropharynx were bulb suctioned. Cord was clamped -2 and cut. The infant was handed to pediatrics who were present. The placenta was manually extracted. The uterus was cleared of all clots and debris. The hysterotomy incision was closed with 0 Monocryl in a running locked fashion. The uterus was noted to be rather atonic and Methergine 1 ampule was injected into the uterine musculature. A second layer closure was performed with 2-0 Vicryl. Excellent hemostasis was observed. The uterus tubes and ovaries were returned to the peritoneal cavity. The cavity was irrigated with saline and hemostasis was again assured. Peritoneum was closed with 2-0 Vicryl in a pursestring fashion. Rectus muscles were loosely reapproximated with interrupted stitches of 2-0 Vicryl. The subfascial space was inspected and noted to be hemostatic. The fascia was closed with #1 Vicryl. The subcutaneous tissues were irrigated and hemostasis assured. 3-O plain gut was used to reapproximate the subcutaneous space. The skin was closed in a subcuticular fashion with 4-0 Monocryl. An OpSite dressing was applied. The patient was taken to recovery in stable condition. All sponge needle lap and instrument counts were correct correct -2. Cytotec 1000 g was placed per rectum to prevent hemorrhage due to atony.
--- NOTE | 2016-06-17 12:01 | L&D Flow Sheet ---
LD Flowsheet Datetime Report Generated by CPN: 06/17/2016 12:00 Datetime: 06/17/2016 11:57 NBP Sys/Kelsi/Mean (mmHg): 111 (QS system process) : 61 (QS system process) : 81 (QS system process) Pulse: 82 (QS system process) Datetime: 06/17/2016 11:55 Pulse: 76 (QS system process) SpO2 (%): 100 (QS system process) Datetime: 06/17/2016 11:52 NBP Sys/Kelsi/Mean (mmHg): 107 (QS system process) : 58 (QS system process) : 78 (QS system process) Pulse: 80 (QS system process) Datetime: 06/17/2016 11:50 Pulse: 81 (QS system process) SpO2 (%): 100 (QS system process) Datetime: 06/17/2016 11:48 Pulse: 89 (QS system process) SpO2 (%): 94 (QS system process) Datetime: 06/17/2016 11:47 NBP Sys/Kelsi/Mean (mmHg): 109 (QS system process) : 59 (QS system process) : 82 (QS system process) Pulse: 78 (QS system process) Datetime: 06/17/2016 11:45 Stage of : Recovery (Ellen Toth RN) Pulse: 89 (QS system process) SpO2 (%): 99 (QS system process) Temperature (F): 98.1 (Ellen Toth RN) Temperature (C): 36.7 (QS system process) Pain Scale: 1 (Ellen Toth RN) Pain Presence: Constant (Ellen Toth RN) Pain Type: Burning; Cramping; Pressure; Ache (Ellen Toth RN) Pain Location: incisional (Ellen Toth RN) Datetime: 06/17/2016 11:44 Stage of : Recovery (Ellen Toth, RN) Datetime: 06/17/2016 10:39 Communication Comments: FSE and IUPC removed. Pt to transport to OR via bed accompanied by Dave Toth RN (Ellen Toth, RN) Datetime: 06/17/2016 10:36 NBP Sys/Kelsi/Mean (mmHg): 113 (QS system process) : 67 (QS system process) : 84 (QS system process) Pulse: 106 (QS system process) LaborFlag: Labor (QS system process) Datetime: 06/17/2016 10:34 NBP Sys/Kelsi/Mean (mmHg): 117 (QS system process) : 67 (QS system process) : 86 (QS system process) Pulse: 107 (QS system process) LaborFlag: Labor (QS system process) Datetime: 06/17/2016 10:32 NBP Sys/Kelsi/Mean (mmHg): 116 (QS system process) : 62 (QS system process) : 84 (QS system process) Pulse: 104 (QS system process) LaborFlag: Labor (QS system process) Datetime: 06/17/2016 10:30 NBP Sys/Kelsi/Mean (mmHg): 114 (QS system process) : 69 (QS system process) : 85 (QS system process) Pulse: 108 (QS system process) Monitor Mode: External; Palpation (Destiny Jose, RN) Frequency (min): 2-2.5 (Destiny Garcia RN) Quality: Moderate (Destiny Garcia RN) Duration (sec): 60-80 (Destiny Garcia RN) Duration Criteria: Less than Two 120 Second Contractions (Destiny Garcia RN) Pattern: Normal: <= 5 Contractions in 10 Minutes (Destiny Garcia RN) Resting Tone (Palpate): Relaxed (Destiny Garcia RN) Monitor Mode: External US (Destiny Garcia RN) FHR Baseline Rate : 140 (Destiny Garcia RN) FHR Baseline Changes: No Baseline Change (Destiny Garcia RN) Variability: Moderate 6-25 bpm (Destiny Garcia RN) Accelerations: None (Destiny Garcia RN) Decelerations: None (Destiny Garcia RN) LaborFlag: Labor (QS system process) Datetime: 06/17/2016 10:27 Antibiotics: Ancef IV (Gm) @ 2 (Ellen Toth RN) Antiemetics/Antacids: Bicitra 15 ml PO (Ellen Toth RN) Procedure Verify: Correct Patient Identity; Correct Side and Site are Marked; Accurate Procedure Consent Form; Correct Patient Position; Safety Precautions Based on Patient History or Medication Use (Ellen Toth, RN) Anesthesia Comments: Lico Perez CRNA at bedside for assessment and epidural dose. See anesthesia record (Ellen Toth RN) Datetime: 06/17/2016 10:19 Patient Care Comments: 900ml urine emptied from regalado (Ellen Toth, RN) Datetime: 06/17/2016 10:18 NBP Sys/Kelsi/Mean (mmHg): 128 (QS system process) : 61 (QS system process) : 88 (QS system process) Pulse: 112 (QS system process) LaborFlag: Labor (QS system process) Datetime: 06/17/2016 10:16 Communication Comments: Nursery, anesthesia, LMSW notified of impending (Destiny Jose, RN) Datetime: 06/17/2016 10:15 Monitor Mode: External; Palpation (Destiny Garcia, RN) Frequency (min): 1.5-3 (Destiny Garcia, RN) Quality: Moderate (Destiny Garcia, RN) Duration (sec): 60-160 (Destiny Garcia, RN) Duration Criteria: Less than Two 120 Second Contractions (Destiny Garcia, RN) Pattern: Normal: <= 5 Contractions in 10 Minutes (Destiny Garcia, RN) Resting Tone (Palpate): Relaxed (Destiny Garcia, RN) Monitor Mode: External US (Destiny Garcia, RN) FHR Baseline Rate : 140 (Destiny Garcia, RN) FHR Baseline Changes: No Baseline Change (Destiny Garcia, RN) Variability: Moderate 6-25 bpm (Destiny Garcia, RN) Accelerations: 15X15 (Destiny Garcia, RN) Decelerations: None (Destiny Garcia, RN) Datetime: 06/17/2016 10:12 Communication Comments: Discussing POC with pt for (Ellen Toth RN) Datetime: 06/17/2016 10:11 Exam by: Dr. Lopez (Ellen Toth, RN) Vaginal Exam Comments: unchanged (Ellen Toth, RN) Pitocin (milliunit): Pitocin Discontinued (Ellen Toth, RN) Datetime: 06/17/2016 10:09 Communication Comments: Dr. Lopez at bedside (Ellen Toth, RN) Datetime: 06/17/2016 10:02 NBP Sys/Kelsi/Mean (mmHg): 125 (QS system process) : 58 (QS system process) : 84 (QS system process) Pulse: 102 (QS system process) LaborFlag: Labor (QS system process) Datetime: 06/17/2016 10:00 Monitor Mode: External; Palpation (Destiny Garcia RN) Frequency (min): 1-3.5 (Destiny Garcia RN) Quality: Moderate (Destiny Garcia RN) Duration (sec): 50-70 (Destiny Garcia, RN) Duration Criteria: Less than Two 120 Second Contractions (Destiny Garcia RN) Pattern: Normal: <= 5 Contractions in 10 Minutes (Destiny Garcia RN) Resting Tone (Palpate): Relaxed (Destiny Garcia, RN) Contraction Comments: MVU 200 (Ellen Toth, RN) Monitor Mode: External US (Destiny Garcia RN) FHR Baseline Rate : 140 (Destiny Garcia RN) FHR Baseline Changes: No Baseline Change (Destiny Garcia, CHACHA) Variability: Moderate 6-25 bpm (Destiny Garcia, RN) Accelerations: 15X15 (Destiny Garcia, RN) Decelerations: None (Destiny Garcia, CHACHA) Pitocin (milliunit): Pitocin Started (milliunits) @ 2 (NAVNEET Mulligan) Pitocin (milliunit): Pitocin Started (milliunits) @ 2; Pitocin 20 Units in 1000ml NS (Ellen Toth, RN) Communication Comments: Restarting Pitocin per Dr. Lopez (Ellen Toth, RN)
[2016-06-17] MEDS ORDERED: MEPERIDINE HCL/PF INJ 25 MG/1 ML DISP.SYRIN ONE (12:15)
--- NOTE | 2016-06-17 12:45 | Delivery Summary ---
Del Sum A-C Datetime Report Generated by CPN: 06/17/2016 12:45 ADMISSION DATA Chief Complaint: Suspected Ruptured Membranes Indication for Induction: PROM Admission Impression: Term, Intrauterine ; Ruptured Membranes; Induction of Labor Admit Provider Comments: 21yo at 38+6ega presents for PROM. c/b +ONTD on AFP. [facility] referral done. [facility] normal anatomy. Discharged from [facility] in [place]. EFW per last US was 5#12oz. Plan for IOL with FB and pitocin. cvx /-2. Pelvis adequate for TAWNY. Reassuring FWB. amnisure positive and pooling and valsalva. Anticpate . GBS negative. DELIVERY PERSONNEL Delivery Doctor:: Malka Lopez MD Anesthesiologist:: Riley Boston MD LETTERER:: Price Perez CRNA Labor and Delivery Nurse:: Ellen Toth RNflower arranger Nurse:: Ama Parr RN Nursery Nurse:: Maria L Schumacher RN Contact Lens Lathe Operator/CHILD AND FAMILY SERVICES SPECIALIST: [facility] Contact Lens Lathe Operator/CHILD AND FAMILY SERVICES SPECIALIST: Aneudy GreenbergST eugene MATERNAL INFORMATION Delivery Anesthesia: Epidural Medications After Delivery: Pitocin Bolus-Please Comment; Pitocin Drip 20 Units/1000ml NSS; Methergine 0.2mg IM Meds After Delivery Comment: methergine given in OR per Dr. Lopez Estimated Blood Loss (ml): 500 Maternal Complications: None LABOR SUMMARY EDC: 06/24/2016 00:00 No. Babies in Womb: 1 Attempted: No Labor Anesthesia: Epidural LABOR INFORMATION Reason for Induction: Not Applicable Onset of Labor: 06/16/2016 22:15 Oxytocin: Augmentation Group B Beta Strep: Negative Antibiotics # of Doses: 1 Antibiotics Time of Last Dose: Ancef Name of Antibiotic Given: 1027 Steroids Given: None Reason Steroids Not Administered: Not Applicable MEMBRANES Membranes Rupture Method: Spontaneous Rupture of Membranes: 06/16/2016 19:30 Length of Rupture (hr): 15.48 Amniotic Fluid Color: Clear Amniotic Fluid Amount: Small Amniotic Fluid Odor: Normal STAGES OF LABOR Stage 3 hr: 0 Stage 3 min: 1 Total Time in Labor hr: 12 Total Time in Labor min: 45 VAGINAL DELIVERY Episiotomy: None Laceration Extension: N/A Laceration Type: None Laceration Repair: Not Applicable Sponge Count Correct: N/A Sharps Count Correct: N/A CSECTION DELIVERY Primary Indication: Other Other Primary Indication: Failure to progress Secondary Indication: N/A CSection Urgency: Non-Scheduled CSection Incidence: Primary Labor: Labor Elective: Nonelective CSection Incision: Lower Uterine Transverse BABY A INFORMATION Infant Delivery Date/Time: 06/17/2016 10:59 Method of Delivery: Born in Route : No : N/A Forceps: N/A Vacuum Extraction: N/A Shoulder Dystocia : No PRESENTATION/POSITION BABY A Presentation: Cephalic Cephalic Presentation: Vertex Breech Presentation: N/A PLACENTA INFORMATION BABY A Placenta Delivery Time : 06/17/2016 11:00 Placenta Method of Delivery: Manual Removal Placenta Status: Delivered SCORES BABY A Heart Rate 1 min: >100 bpm Resp Effort 1 min: Good Cry Reflex Irritability 1 min: Cough or Sneeze or Pulls Away Muscle Tone 1 min: Active Motion Color 1 min: Body [place], Extremities Blue SCORE 1 MIN: 9 Heart Rate 5 min: >100 bpm Resp Effort 5 min: Good Cry Reflex Irritability 5 min: Cough or Sneeze or Pulls Away Muscle Tone 5 min: Active Motion Color 5 min: Body [place], Extremities Blue SCORE 5 MIN: 9 INFORMATION BABY A Gestational Age at Delivery: 39.0 Gestational Status: Full Term- 39- 40.6 Weeks Outcome : Liveborn Infant Condition : Stable Infant Sex: Female WEIGHT/LENGTH BABY A Infant Birthweight (gm): 3110 Weight (lb): 6 Infant Weight (oz): 14 Infant Length (in): 19.75 Infant Length (cm): 50.17 CORD INFORMATION BABY A No. Cord Vessels: 3 Nuchal Cord : N/A Cord Blood Taken: Yes-For Storage (Mom's Blood type +) Infant Suction: Mouth; Nose ASSESSMENT BABY A Infant Complications: None Physical Findings at Delivery: Molding of the Head Infant Respirations: Appears Normal Skin to Skin: No Dry House Wheeler/ALS Called : No Infant Care By: George Schumacher RN Transferred To: Nursery BABY B INFORMATION : N/A
[2016-06-17] MEDS ORDERED: FENTANYL CITRATE INJ/PF 100 MCG/2 ML AMPUL ONE (12:50)
[2016-06-17] MEDS ORDERED: OXYTOCIN/NORMAL SALINE 20 UNIT/1,000 ML RTUINJ ONE (13:10)
--- NOTE | 2016-06-17 13:18 | Admission Physical ---
Datetime Report Generated by CPN: 06/17/2016 13:18 CURRENT ADMISSION Chief Complaint: Suspected Ruptured Membranes Indication for Induction: PROM Admit Plan: Admit to Unit; Initiate Labor Induction Protocol ALLERGIES Medication Allergies: No Medication Allergies: No Known Allergies (06/06/2016) Latex: No Latex Allergies Environmental Allergies: pollon and cats OBSTETRICAL HISTORY EDC: 06/24/2016 00:00 : 1 Para: 0 Term: 0 : 0 SAB: 0 IAB: 0 Ectopic: 0 Livin Cesareans: 0 VBACs: 0 Multiple Births: 0 Gestational Diabetes: No Rh Sensitization: No Incompetent Cervix: No NISA: No Infertility: No ART Treatment: No Uterine Anomaly: No IUGR: No Hx Previous C/S: No Macrosomia: No Hx Loss/Stillborn: No PIH: No Hx : No Placenta Previa/Abruption: No Depression/PP Depression: No PTL/PROM: No Post Hemorrhage: No Current Procedures: Ultrasound; NST Obstetrical History Comments: G1: AFP was elevated but further testing proved no problems with spina bifida SEE RECORDS Alcohol: No Marijuana : No Cocaine: No Other Illicit Drugs: No Cigarettes: Never Smoker. [id number] MEDICAL HISTORY Diabetes: No Blood Transfusion: No Pulmonary Disease (Asthma, TB): No Breast Disease: No Hypertension: No Leadership Program Intern Surgery: No Heart Disease: No Hosp/Surgery: No Autoimmune Disorder: No Anesthetic Complications: No Kidney Disease: No Abnormal Pap Smear: No Neuro/Epilepsy: No Psychiatric Disorders: No Other Medical Diseases: No Hepatitis/Liver Disease: No Significant Family History: No Varicosities/Phlebitis: No Trauma/Violence : No Thyroid Dysfunction: No INFECTIOUS HISTORY Gonorrhea: No Genital Herpes: No Chlamydia: No Tuberculosis: No Syphilis: No Hepatitis: No HIV/AIDS Exposure: No Rash or Viral Illness: No HPV: No PHYSICAL EXAM General: Normal HEENT: Normal Neurologic: Normal Thyroid: Normal Heart: Normal Lungs: Normal Breast: Deferred Back: Normal Abdomen: Normal Genitourinary Exam: Normal Extremities: Normal DTRs: Normal Pelvic Type: Adequate Vital Signs: Reviewed VAGINAL EXAM Dilatation: 1 Effacement: 70 Station: -2 Contraction Comments: irreg MEMBRANES Pooling: Positive [place] Results: Positive Membranes: Ruptured Amniotic Fluid Color: Clear FETUS A EGA: 38.6 Monitoring: External US FHR- Baseline: 130 Variability: Moderate 6-25bpm Accelerations: 15X15 Decelerations: None FHR Category: Category I Presentation: Vertex Admit Comment: 21yo at 38+6ega presents for PROM. c/b +ONTD on AFP. [facility] referral done. [facility] normal anatomy. Discharged from [facility] in May. EFW per last US was 5#12oz. Plan for IOL with FB and pitocin. cvx /2. Pelvis adequate for TAWNY. Reassuring FWB. amnisure positive and pooling and valsalva. Anticpate . GBS negative. PLANS FOR LABOR AND DELIVERY Pain Management: Epidural Feeding Preference: Breast Benefit of Breast Feed Discussed: Yes Circumcision: N/A INFORMED CONSENT Informed Consent Obtained: Section Delivery Signature: with User ID: [email or web address]
[2016-06-17] MEDS ORDERED: MEASLES,MUMPS&RUBELLA VACC/PF 0.5 ML VIAL SUBCUT PRN (13:39)
[2016-06-17] MEDS ORDERED: OXYCODONE-ACETAMINOPHEN 5-325 MG TABLET PO PRN (13:39)
[2016-06-17] MEDS ORDERED: SIMETHICONE 80 MG TAB.CHEW PO PRN (13:39)
[2016-06-17] MEDS ORDERED: ACETAMINOPHEN 325 MG TABLET PO PRN (13:39)
[2016-06-17] MEDS ORDERED: DIPH/PERTUSS(ACELL)/TETANUS VAC/PF 0.5 ML SYR (>=10YO) IM PRN (13:39)
[2016-06-17] MEDS ORDERED: PROMETHAZINE HCL INJ 25 MG/1 ML VIAL IM PRN (13:39)
[2016-06-17] MEDS ORDERED: OXYTOCIN/NORMAL SALINE 20 UNIT/1,000 ML RTUINJ INJ PRN (13:39)
[2016-06-17] MEDS: HYDROMORPHONE HCL INJ/PF 2 MG/ML AMPULE IV PRN ×2 (14:31→18:16)
[2016-06-17] MEDS: DOCUSATE SODIUM 100 MG CAPSULE PO SCH (18:15)
[2016-06-17] MEDS: IBUPROFEN 800 MG TABLET PO SCH (18:15)
[2016-06-17] MEDS ORDERED: ONDANSETRON HCL INJ/PF 4 MG/2 ML SDV IV PRN (18:46)
[2016-06-17] MEDS ORDERED: ONDANSETRON 4 MG TAB.RAPDIS PO PRN (18:46)
--- NOTE | 2016-06-17 19:01 | L&D Flow Sheet ---
LD Flowsheet Datetime Report Generated by CPN: 06/17/2016 19:01 Datetime: 06/17/2016 13:10 Pulse: 100 (QS system process) SpO2 (%): 100 (QS system process) Datetime: 06/17/2016 13:05 Pulse: 87 (QS system process) SpO2 (%): 100 (QS system process) Datetime: 06/17/2016 13:03 NBP Sys/Kelsi/Mean (mmHg): 139 (QS system process) : 78 (QS system process) : 100 (QS system process) Pulse: 90 (QS system process) Datetime: 06/17/2016 13:00 Stage of : Recovery (Ellne Toth RN) Pulse: 91 (QS system process) SpO2 (%): 100 (QS system process) Pain Scale: 3 (Ellen Toth RN) Pain Presence: Constant (Ellen Toth RN) Pain Type: Burning; Cramping; Pressure; Ache (Ellen Toth RN) Pain Location: Abdomen (Ellen Toth RN) Datetime: 06/17/2016 12:57 Pain Scale: 3 (Ellen Navneet, RN) Pain Presence: Constant (Ellen Toth, RN) Pain Type: Burning; Cramping; Pressure; Ache (Ellen Toth, RN) Pain Location: Abdomen (Ellen Toth, RN) Datetime: 06/17/2016 12:55 Pulse: 88 (QS system process) SpO2 (%): 91 (QS system process) Datetime: 06/17/2016 12:50 Pulse: 93 (QS system process) SpO2 (%): 100 (QS system process) Datetime: 06/17/2016 12:49 NBP Sys/Kelsi/Mean (mmHg): 132 (QS system process) : 95 (QS system process) : 111 (QS system process) Pulse: 92 (QS system process) Datetime: 06/17/2016 12:45 Stage of : Recovery (Ellen Toth RN) Pulse: 90 (QS system process) SpO2 (%): 100 (QS system process) Pain Scale: 3 (Ellen Toth RN) Pain Presence: Constant (Ellen Toth RN) Pain Type: Burning; Cramping; Pressure; Ache (Ellen Toth RN) Pain Location: Abdomen (Ellen Toth RN) Datetime: 06/17/2016 12:40 Pulse: 89 (QS system process) SpO2 (%): 100 (QS system process) Datetime: 06/17/2016 12:35 Pulse: 90 (QS system process) SpO2 (%): 100 (QS system process) Datetime: 06/17/2016 12:34 NBP Sys/Kelsi/Mean (mmHg): 125 (QS system process) : 73 (QS system process) : 94 (QS system process) Pulse: 86 (QS system process) Datetime: 06/17/2016 12:30 Stage of : Recovery (Ellen Toth RN) Pulse: 84 (QS system process) SpO2 (%): 100 (QS system process) Pain Scale: 3 (Ellen Toth RN) Pain Presence: Constant (Ellen Toth RN) Pain Type: Burning; Cramping; Pressure; Ache (Ellen Toth, RN) Pain Location: Abdomen (Ellen Toth, RN) Pain Assessment Comments: Pt denies need for pain medicine (Ellenoksana Toth, RN) Datetime: 06/17/2016 12:25 Pulse: 90 (QS system process) SpO2 (%): 100 (QS system process) Datetime: 06/17/2016 12:20 Pulse: 92 (QS system process) SpO2 (%): 100 (QS system process) Datetime: 06/17/2016 12:18 NBP Sys/Kelsi/Mean (mmHg): 119 (QS system process) : 68 (QS system process) : 87 (QS system process) Pulse: 92 (QS system process) Datetime: 06/17/2016 12:15 Stage of : Recovery (Ellen Toth RN) Pulse: 100 (QS system process) SpO2 (%): 100 (QS system process) Pain Scale: 3 (Ellen Toth RN) Pain Presence: Constant (Ellen Toth RN) Pain Type: Burning; Cramping; Pressure; Ache (Ellen Toth RN) Pain Location: Abdomen (Ellen Toth RN) Datetime: 06/17/2016 12:10 Pulse: 98 (QS system process) SpO2 (%): 100 (QS system process) Datetime: 06/17/2016 12:05 Pulse: 91 (QS system process) SpO2 (%): 100 (QS system process) Datetime: 06/17/2016 12:02 NBP Sys/Kelsi/Mean (mmHg): 116 (QS system process) : 63 (QS system process) : 83 (QS system process) Pulse: 76 (QS system process) Datetime: 06/17/2016 12:00 Stage of : Recovery (Ellen Toth RN) Pulse: 75 (QS system process) SpO2 (%): 100 (QS system process) Pain Scale: 2 (Ellen Toth RN) Pain Presence: Constant (Ellen Toth RN) Pain Type: Burning; Cramping; Pressure; Ache (Ellen Toth RN) Pain Location: Abdomen (Ellen Toth RN) Datetime: 06/17/2016 11:57 NBP Sys/Kelsi/Mean (mmHg): 111 (QS system process) : 61 (QS system process) : 81 (QS system process) Pulse: 82 (QS system process) Datetime: 06/17/2016 11:55 Pulse: 76 (QS system process) SpO2 (%): 100 (QS system process) Datetime: 06/17/2016 11:52 NBP Sys/Kelsi/Mean (mmHg): 107 (QS system process) : 58 (QS system process) : 78 (QS system process) Pulse: 80 (QS system process) Datetime: 06/17/2016 11:50 Pulse: 81 (QS system process) SpO2 (%): 100 (QS system process) Datetime: 06/17/2016 11:48 Pulse: 89 (QS system process) SpO2 (%): 94 (QS system process) Datetime: 06/17/2016 11:47 NBP Sys/Kelsi/Mean (mmHg): 109 (QS system process) : 59 (QS system process) : 82 (QS system process) Pulse: 78 (QS system process) Datetime: 06/17/2016 11:45 Stage of : Recovery (Ellen Toth RN) Pulse: 89 (QS system process) SpO2 (%): 99 (QS system process) Temperature (F): 98.1 (Ellen Toth RN) Temperature (C): 36.7 (QS system process) Pain Scale: 1 (Ellen Toth RN) Pain Presence: Constant (Ellen Toth RN) Pain Type: Burning; Cramping; Pressure; Ache (Ellen Toth RN) Pain Location: incisional (Ellen Toth RN) Datetime: 06/17/2016 11:44 Stage of : Recovery (Ellen Toth RN) Datetime: 06/17/2016 10:39 Communication Comments: FSE and IUPC removed. Pt to transport to OR via bed accompanied by Dave Toth RN (Ellen Toth, RN) Datetime: 06/17/2016 10:36 NBP Sys/Kelsi/Mean (mmHg): 113 (QS system process) : 67 (QS system process) : 84 (QS system process) Pulse: 106 (QS system process) LaborFlag: Labor (QS system process) Datetime: 06/17/2016 10:34 NBP Sys/Kelsi/Mean (mmHg): 117 (QS system process) : 67 (QS system process) : 86 (QS system process) Pulse: 107 (QS system process) LaborFlag: Labor (QS system process) Datetime: 06/17/2016 10:32 NBP Sys/Kelsi/Mean (mmHg): 116 (QS system process) : 62 (QS system process) : 84 (QS system process) Pulse: 104 (QS system process) LaborFlag: Labor (QS system process) Datetime: 06/17/2016 10:30 NBP Sys/Kelsi/Mean (mmHg): 114 (QS system process) : 69 (QS system process) : 85 (QS system process) Pulse: 108 (QS system process) Monitor Mode: External; Palpation (Destiny Garcia RN) Frequency (min): 2-2.5 (Destiny Garcia RN) Quality: Moderate (Destiny Garcia RN) Duration (sec): 60-80 (Destiny Garcia RN) Duration Criteria: Less than Two 120 Second Contractions (Destiny Garcia RN) Pattern: Normal: <= 5 Contractions in 10 Minutes (Destiny Garcia RN) Resting Tone (Palpate): Relaxed (Destiny Garcia RN) Monitor Mode: External US (Destiny Garcia RN) FHR Baseline Rate : 140 (Destiny Garcia RN) FHR Baseline Changes: No Baseline Change (Destiny Garcia RN) Variability: Moderate 6-25 bpm (Destiny Garcia RN) Accelerations: None (Destiny Garcia RN) Decelerations: None (Destiny Garcia RN) LaborFlag: Labor (QS system process) Datetime: 06/17/2016 10:27 Antibiotics: Ancef IV (Gm) @ 2 (Ellen Toth RN) Antiemetics/Antacids: Bicitra 15 ml PO (Ellen Toth RN) Procedure Verify: Correct Patient Identity; Correct Side and Site are Marked; Accurate Procedure Consent Form; Correct Patient Position; Safety Precautions Based on Patient History or Medication Use (Ellen Toth RN) Anesthesia Comments: Lico Perez CRNA at bedside for assessment and epidural dose. See anesthesia record (Ellen Toth RN) Datetime: 06/17/2016 10:19 Patient Care Comments: 900ml urine emptied from regalado (Ellen Toth RN) Datetime: 06/17/2016 10:18 NBP Sys/Kelsi/Mean (mmHg): 128 (QS system process) : 61 (QS system process) : 88 (QS system process) Pulse: 112 (QS system process) LaborFlag: Labor (QS system process) Datetime: 06/17/2016 10:16 Communication Comments: Nursery, anesthesia, [employer] REPRESENTATIVE notified of impending (Destiny Garcia RN) Datetime: 06/17/2016 10:15 Monitor Mode: External; Palpation (Destiny Garcia RN) Frequency (min): 1.5-3 (Destiny Garcia RN) Quality: Moderate (Destiny Garcia RN) Duration (sec): 60-160 (Destiny Garcia RN) Duration Criteria: Less than Two 120 Second Contractions (Destiny Garcia RN) Pattern: Normal: <= 5 Contractions in 10 Minutes (Destiny Garcia RN) Resting Tone (Palpate): Relaxed (Destiny Garcia RN) Monitor Mode: External US (Destiny Garcia RN) FHR Baseline Rate : 140 (Destiny Garcia RN) FHR Baseline Changes: No Baseline Change (Destiny Garcia RN) Variability: Moderate 6-25 bpm (Destiny Garcia RN) Accelerations: 15X15 (Destiny Garcia RN) Decelerations: None (Destiny Garcia RN) Datetime: 06/17/2016 10:12 Communication Comments: Discussing POC with pt for (Ellen Toth RN) Datetime: 06/17/2016 10:11 Exam by: Dr. Lopez (Ellen Toth RN) Vaginal Exam Comments: unchanged (Ellen Toth RN) Pitocin (milliunit): Pitocin Discontinued (Ellen Toth RN) Datetime: 06/17/2016 10:09 Communication Comments: Dr. Lopez at bedside (Ellen Toth RN) Datetime: 06/17/2016 10:02 NBP Sys/Kelsi/Mean (mmHg): 125 (QS system process) : 58 (QS system process) : 84 (QS system process) Pulse: 102 (QS system process) LaborFlag: Labor (QS system process) Datetime: 06/17/2016 10:00 Monitor Mode: External; Palpation (Destiny Garcia RN) Frequency (min): 1-3.5 (Destiny Garcia RN) Quality: Moderate (Destniy Garcia RN) Duration (sec): 50-70 (Destiny Garcia RN) Duration Criteria: Less than Two 120 Second Contractions (Destiny Garcia RN) Pattern: Normal: <= 5 Contractions in 10 Minutes (Destiny Garcia RN) Resting Tone (Palpate): Relaxed (Destiny Garcia RN) Contraction Comments: MVU 200 (Ellen Toth RN) Monitor Mode: External US (Destiny Garcia RN) FHR Baseline Rate : 140 (Destiny Garcia RN) FHR Baseline Changes: No Baseline Change (Destiny Garcia RN) Variability: Moderate 6-25 bpm (Destiny Garcia RN) Accelerations: 15X15 (Destiny Garcia RN) Decelerations: None (Destiny Garcia RN) Pitocin (milliunit): Pitocin Started (milliunits) @ 2 (NAVNEET Mulligan) Pitocin (milliunit): Pitocin Started (milliunits) @ 2; Pitocin 20 Units in 1000ml NS (Ellen Toth RN) Communication Comments: Restarting Pitocin per Dr. Lopez (Ellen Toth RN) Datetime: 06/17/2016 09:47 NBP Sys/Kelsi/Mean (mmHg): 118 (QS system process) : 55 (QS system process) : 79 (QS system process) Pulse: 94 (QS system process) LaborFlag: Labor (QS system process) Datetime: 06/17/2016 09:45 Monitor Mode: External; Palpation (Destiny Garcia, RN) Frequency (min): 1.5-2.5 (Destiny Garcia, RN) Quality: Moderate (Destiny Garcia, RN) Duration (sec): 60-90 (Destiny Garcia, RN) Duration Criteria: Less than Two 120 Second Contractions (Destiny Garcia, RN) Pattern: Normal: <= 5 Contractions in 10 Minutes (Destiny Garcia, RN) Resting Tone (Palpate): Relaxed (Destiny Garcia, RN) Monitor Mode: External US (Destiny Garcia, RN) FHR Baseline Rate : 140 (Destiny Garcia, RN) FHR Baseline Changes: No Baseline Change (Destiny Garcia, RN) Variability: Moderate 6-25 bpm (Destiny Jose, RN) Accelerations: 15X15 (Destiny Garcia, RN) Decelerations: None (Destiny Garcia, RN) Datetime: 06/17/2016 09:33 NBP Sys/Kelsi/Mean (mmHg): 123 (QS system process) : 65 (QS system process) : 84 (QS system process) Pulse: 106 (QS system process) LaborFlag: Labor (QS system process) Datetime: 06/17/2016 09:30 Monitor Mode: Internal (Ellenoksana Toth, RN) Frequency (min): 1.5-2.5 (Ellenoksana Toth, RN) Quality: Moderate (Ellen Navneet, RN) Duration (sec): 60-90 (Ellenoksana Toth, RN) Resting Tone (Palpate): Relaxed (Ellen Navneet, RN) Monitor Mode: Internal Scalp Electrode (Ellen Toth, RN) FHR Baseline Rate : 145 (Ellenoksana Toth, RN) Variability: Moderate 6-25 bpm (Ellen Navneet, RN) Accelerations: 15X15 (Ellen Navneet, RN) Decelerations: None (Ellen Toth, RN) Datetime: 06/17/2016 09:24 Patient Position/Activity: Peanut Ball; Right Extreme (Ellen Toth, RN) Datetime: 06/17/2016 09:18 NBP Sys/Kelsi/Mean (mmHg): 110 (QS system process) : 59 (QS system process) : 77 (QS system process) Pulse: 96 (QS system process) LaborFlag: Labor (QS system process) Datetime: 06/17/2016 09:15 Monitor Mode: Internal (Ellen Toth RN) Frequency (min): 1-2 (Ellen Toth RN) Quality: Moderate (Ellen oTth RN) Duration (sec): 50-90 (Ellen Toth RN) Resting Tone (Palpate): Relaxed (Ellen Toth RN) Monitor Mode: Internal Scalp Electrode (Ellen Toth RN) FHR Baseline Rate : 145 (Ellen Toth RN) Variability: Moderate 6-25 bpm (Ellen Toth RN) Accelerations: 15X15 (Ellen Toth, RN) Decelerations: None (Ellen Toth RN) Datetime: 06/17/2016 09:02 NBP Sys/Kelsi/Mean (mmHg): 101 (QS system process) : 55 (QS system process) : 72 (QS system process) Pulse: 91 (QS system process) LaborFlag: Labor (QS system process) Datetime: 06/17/2016 09:00 Monitor Mode: Internal (Ellen Toth, RN) Frequency (min): 1-2 (Ellen Toth RN) Quality: Mild/Moderate (Ellen Toth, RN) Duration (sec): 50-70 (Ellen Toth, RN) Duration Criteria: Less than Two 120 Second Contractions (Ellen Toth, RN) Pattern: Normal: <= 5 Contractions in 10 Minutes (Ellen Toth, RN) Resting Tone (Palpate): Relaxed (Ellen Toth, RN) Monitor Mode: Internal Scalp Electrode (Ellen Toth, RN) FHR Baseline Rate : 150 (Ellenoksana Toth, RN) Variability: Moderate 6-25 bpm (Ellenoksana Toth, RN) Accelerations: 10X10 (Ellenoksana Toth, RN) Decelerations: Variable (Ellen Toth, RN) Datetime: 06/17/2016 08:49 Patient Position/Activity: Left Extreme; Peanut Ball (Ellen Toth RN) Datetime: 06/17/2016 08:47 NBP Sys/Kelsi/Mean (mmHg): 125 (QS system process) : 63 (QS system process) : 85 (QS system process) Pulse: 87 (QS system process) LaborFlag: Labor (QS system process) Datetime: 06/17/2016 08:45 Monitor Mode: Internal (Ellen Toth RN) Frequency (min): 1-2 (Ellen Toth RN) Quality: Moderate (Ellen Toth RN) Duration (sec): 50-90 (Ellen Toth RN) Resting Tone (Palpate): Relaxed (Ellen Toth RN) Monitor Mode: Internal Scalp Electrode (Ellen Toth RN) FHR Baseline Rate : 160 (Ellen Toth RN) Variability: Moderate 6-25 bpm (Ellen Toth RN) Accelerations: None (Ellen Toth RN) Decelerations: None (Ellen Toth RN) Datetime: 06/17/2016 08:32 NBP Sys/Kelsi/Mean (mmHg): 115 (QS system process) : 65 (QS system process) : 84 (QS system process) Pulse: 95 (QS system process) LaborFlag: Labor (QS system process) Datetime: 06/17/2016 08:30 Monitor Mode: Internal; Palpation (Ellen Toth RN) Frequency (min): 1-2 (Ellen Toth RN) Quality: Moderate (Ellen Toth RN) Duration (sec): 60-90 (Ellen Toth RN) Duration Criteria: Less than Two 120 Second Contractions (Ellen Toth RN) Pattern: Normal: <= 5 Contractions in 10 Minutes (Ellen Toth RN) Resting Tone (Palpate): Relaxed (Ellen Toth RN) Resting Tone IUP (mmHg): 20 (Ellen Toth RN) Intensity IUP (mmHg): 58 (Ellen Toth RN) Contraction Comments: MVU 290 (Ellen Toth RN) Monitor Mode: Internal Scalp Electrode (Ellen Toth RN) FHR Baseline Rate : 190 (Ellen Toth RN) Variability: Moderate 6-25 bpm (Ellen Toth RN) Accelerations: None (Ellen Toth RN) Decelerations: None (Ellen Toth RN) Datetime: 06/17/2016 08:22 Actions for Decelerations: Oxygen Applied (Ellen Toth, RN) Datetime: 06/17/2016 08:19 IV/Blood Work: New IV Bag Hung (Ellen Navneet, RN) Datetime: 06/17/2016 08:17 Respirations: 14 (Ellen Navneet, RN) Temperature (F): 99.5 (Ellen Navneet, RN) Temperature (C): 37.5 (QS system process) LaborFlag: Labor (QS system process) Datetime: 06/17/2016 08:15 Monitor Mode: External; Internal; Palpation (Ellen Toth, RN) Quality: Mild/Moderate (Ellen Toth, RN) Resting Tone (Palpate): Relaxed (Ellen Toth, RN) Contraction Comments: contractions not tracing (Ellen Toth, RN) Monitor Mode: External US; Internal Scalp Electrode (Ellen Toth, RN) FHR Baseline Rate : 180 (Ellen Toth, RN) Variability: Moderate 6-25 bpm (Ellen Toth, RN) Accelerations: None (Ellen Toth, RN) Datetime: 06/17/2016 08:14 Patient Position/Activity: Peanut Ball; Right Extreme (Ellen Toth, RN) Datetime: 06/17/2016 08:11 Monitor Interventions for FHR: FSE Applied (Ellen Toth RN) Datetime: 06/17/2016 08:10 Monitor Interventions for UA: IUPC Inserted (Ellen Toth RN) Datetime: 06/17/2016 08:05 Actions for Decelerations: IV Bolus (Ellen Toth RN) Dilatation (cm): 7.5 (Ellen Toth RN) Effacement (%): 90 (Ellen Toth RN) Station: 0 (Ellen Toth RN) Exam by: Dr. Lopez (Ellen Toth RN) Pitocin (milliunit): Pitocin Discontinued (Ellen Toth RN) Communication Comments: Dr. Lopez and Sofia Garcia CNM at bedside (Ellen Toth RN) Datetime: 06/17/2016 08:03 Comments: spontaneous decelerations (Ellen Toth, RN) Patient Position/Activity: Right Lateral (Ellen Toth, RN) Datetime: 06/17/2016 08:00 Monitor Mode: External; Palpation (Ellen Toth, RN) Resting Tone (Palpate): Relaxed (Ellen Toth RN) Contraction Comments: unable to determine contractions at this time (Ellen Toth RN) Monitor Mode: External US (Ellen Toth, RN) FHR Baseline Rate : 140 (Ellen Toth, RN) Variability: Moderate 6-25 bpm (Ellen Toth, RN) Accelerations: 15X15 (Ellen Toth, RN) Decelerations: None (Ellen Toth, RN) Pitocin (milliunit): Pitocin Remains (milliunits) @ 8 (Ellen Toth, RN) Datetime: 06/17/2016 07:55 Monitor Interventions for UA: Cross Anchor Adjusted (Ellen Toth, RN) Datetime: 06/17/2016 07:52 Monitor Interventions for UA: Cross Anchor Adjusted (Ellen Toth, RN) Datetime: 06/17/2016 07:51 NBP Sys/Kelsi/Mean (mmHg): 97 (QS system process) : 50 (QS system process) : 68 (QS system process) Pulse: 96 (QS system process) LaborFlag: Labor (QS system process) Datetime: 06/17/2016 07:45 Monitor Mode: External (Ellen Toth RN) Frequency (min): 1-3 (Ellen Toth RN) Quality: Mild/Moderate (Ellen Toth RN) Duration (sec): 40-70 (Ellen Toth RN) Resting Tone (Palpate): Relaxed (Ellen Toth RN) Monitor Mode: External US (Ellen Toth RN) FHR Baseline Rate : 135 (Ellen Toth RN) Variability: Moderate 6-25 bpm (Ellen Toth, RN) Accelerations: 15X15 (Ellen Toth RN) Decelerations: None (Ellen Toth RN) Pitocin (milliunit): Pitocin Remains (milliunits) @ 8 (Ellen Toth RN) Patient Position/Activity: Left Extreme; Peanut Ball (Ellen Toth RN) Datetime: 06/17/2016 07:30 Monitor Mode: External (Ellen Toth RN) Frequency (min): 1-2 (Ellen Toth RN) Quality: Mild/Moderate (Ellen Toth RN) Duration (sec): 40-60 (Ellen Toth RN) Resting Tone (Palpate): Relaxed (Ellen Toth RN) Monitor Mode: External US (Ellen Toth RN) FHR Baseline Rate : 140 (Ellen Toth RN) Variability: Moderate 6-25 bpm (Ellen Toth, RN) Accelerations: 15X15 (Ellen Toth, RN) Decelerations: None (Ellen Toth RN) Level of Consciousness: Fully Conscious (Ellen Toth RN) DTR's/Clonus: DTRs 2+; No Clonus (Ellen Toth RN) Headache: Denies (Ellen Toth RN) Breath Sounds, Left: Clear and Equal (Ellen Toth RN) Breath Sounds, Right: Clear and Equal (Ellen Toth RN) Nausea/Vomiting: Denies (Ellen Toth RN) RUQ Epigastric Pain: Denies (Ellen Toth RN) Pitocin (milliunit): Pitocin Remains (milliunits) @ 8 (Ellen Toth RN) Datetime: 06/17/2016 07:28 Monitor Interventions for UA: Cross Anchor Adjusted (Ellen Toth, CHACHA) Datetime: 06/17/2016 07:22 NBP Sys/Kelsi/Mean (mmHg): 94 (QS system process) : 54 (QS system process) : 66 (QS system process) Pulse: 103 (QS system process) LaborFlag: Labor (QS system process) Datetime: 06/17/2016 07:21 Patient Position/Activity: Peanut Ball; Right Extreme (Ellen Toth, RN) Datetime: 06/17/2016 07:19 Monitor Interventions for UA: Cross Anchor Adjusted (Ellen Toth, RN) Datetime: 06/17/2016 07:15 Monitor Mode: External (Ellen Toth RN) Frequency (min): 1-2 (Ellen Toth RN) Quality: Mild/Moderate (Ellen Toth RN) Duration (sec): 40-60 (Ellen Toth RN) Duration Criteria: Less than Two 120 Second Contractions (Ellen Toth RN) Pattern: Normal: <= 5 Contractions in 10 Minutes (Ellen Toth RN) Resting Tone (Palpate): Relaxed (Ellen Toth RN) Monitor Mode: External US (Ellen Toth RN) FHR Baseline Rate : 140 (Ellen Toth RN) Variability: Moderate 6-25 bpm (Ellen Toth RN) Accelerations: 10X10 (Ellen Toth RN) Decelerations: None (Ellen Toth RN) Pitocin (milliunit): Pitocin Remains (milliunits) @ 8 (Ellen Toth RN) Datetime: 06/17/2016 07:00 Respirations: 18 (Hailey Mercer) Monitor Mode: External; Palpation (Haileyhoward Mercer) Monitor Interventions for UA: Cross Anchor Adjusted (Haileyhoward Mercer) Frequency (min): 2-3 (Haileyhoward Mercer) Quality: Moderate (Hailey Mercer) Duration (sec): 40-60 (Hailey Mercer) Resting Tone (Palpate): Relaxed (Haileyhoward Mercer) Monitor Mode: External US (Haileyhoward Mercer) Monitor Interventions for FHR: Ultrasound Adjusted (Hailey Mercer) FHR Baseline Rate : 140 (Hailey Mercer) FHR Baseline Changes: No Baseline Change (Hailey Mercer) Variability: Moderate 6-25 bpm (Hailey Mercer) Accelerations: 15X15 (Hailey Mercer) Decelerations: None (Hailey Mercer) Pitocin (milliunit): Pitocin Remains (milliunits) @ (Annotations: 8) (Haileyhoward Mercer) Patient Position/Activity: High Fowlers (Haileyhoward Mercer) LaborFlag: Labor (QS system process)
[2016-06-17] MEDS ORDERED: CEFAZOLIN 2 GM/D5W RTU 2 GM/50 ML RTUPB IV SCH (22:00)
[2016-06-17] MEDS: OXYCODONE-ACETAMINOPHEN 5-325 MG TABLET PO PRN (23:25)
[2016-06-18] MEDS: IBUPROFEN 800 MG TABLET PO SCH ×4 (00:07→18:02)
--- NOTE | 2016-06-18 06:01 | L&D Current Admission ---
Current Admit Datetime Report Generated by CPN: 06/18/2016 06:00 ADMISSION INFORMATION Chief Complaint: Suspected Rupture of Membranes (06/16/2016 20:00:Marily Moscoso RN)
--- NOTE | 2016-06-18 06:01 | L&D General Admission ---
General Admit Datetime Report Generated by CPN: 06/18/2016 06:00 INFORMATION Patient Age: 21 (05/16/2016 11:08:QS system process) EDC: 06/24/2016 00:00 (05/16/2016 11:20:Deangelo Welsh RN) : 1 (05/16/2016 11:20:Deangelo Welsh RN) Para: 0 (06/06/2016 11:46:Marily Moscoso RN) Term: 0 (05/16/2016 11:20:Rosalia Hampton RN) : 0 (05/16/2016 11:20:Rosalia Hampton RN) Spontaneous Abortions: 0 (05/16/2016 11:20:Rosalia Hampton RN) Induced Abortions: 0 (05/16/2016 11:20:Rosalia Hampton RN) Livin (05/16/2016 11:20:Rosalia Hampton RN) Cesareans: 0 (05/16/2016 11:20:Rosalia Hampton RN) VBACs: 0 (05/16/2016 11:20:Rosalia Hampton RN) Ectopic: 0 (05/16/2016 11:20:Rosalia Hampton RN) Multiple Births: 0 (05/16/2016 11:20:Rosalia Hampton RN) Baby, Number in Womb: 1 (06/06/2016 11:46:Marily Moscoso RN) CARE Primary Merchandise Appraiser: [facility] (05/16/2016 11:20:Marily Moscoso RN) Adequate Care: Yes (05/16/2016 11:20:Rosalia Hampton RN) Height (in): 61 (06/17/2016 21:50:QS system process) ALLERGIES Medication Allergy: No (05/16/2016 11:20:Marily Moscoso RN) Medication Allergies: No Known Allergies (06/06/2016) (06/06/2016 11:28:QS system process) Latex Allergy: No Latex Allergies (05/16/2016 11:20:Marily Moscoso RN) Environmental Allergies: pollon and cats (05/16/2016 11:20:Marily Moscoso RN) COMMUNICATION Primary Language: Sammarinese (05/16/2016 11:20:Marily Moscoso RN) Medical Tx Preferred Language: Sammarinese (05/16/2016 11:20:Rosalia Hampton RN) Communication Barrier(s): None (05/16/2016 11:20:Rosalia Hampton RN) DEMOGRAPHICS Address: [address] [place] [address] (05/16/2016 11:08:QS system process) Zipcode: [address] (05/16/2016 11:08:QS system process) Home (05/16/2016 11:08:QS system process) SSN: [id number] (05/16/2016 11:08:QS system process) Next of Kin Name: ELVIRA CASTELLANOS (05/16/2016 11:08:QS system process) Next of Kin (05/16/2016 11:08:QS system process) Next of Kin Relationship: SPO (05/16/2016 11:08:QS system process) Date of : 1995 (05/16/2016 11:08:QS system process) Marital Status: (05/16/2016 11:08:QS system process) Sex: Female (05/16/2016 11:08:QS system process) Race: (05/16/2016 11:08:QS system process) Ethnicity: Non- or (05/16/2016 11:08:QS system process) Scientologist: [employer] (05/16/2016 11:08:QS system process) DRUG AND ALCOHOL USE Alcohol: No (05/16/2016 11:20:Marily Moscoso RN) Cigarettes: Never Smoker. [id number] (05/16/2016 11:20:Marily Moscoso RN) Marijuana: No (05/16/2016 11:20:Marily Moscoso RN) Cocaine: No (05/16/2016 11:20:Marily Moscoso RN) Other Illicit Drugs: No (05/16/2016 11:20:Marily Moscoso RN) E/M Engineer: [facility] (05/16/2016 11:20:Marily Moscoso RN) Feeding Preference: Breast (05/16/2016 11:20:Marily Moscoso RN) Benefit of Breast Feed Discussed: Yes (05/16/2016 11:20:Marily Moscoso RN) Circumcision: N/A (05/16/2016 11:20:Marily Moscoso RN) Classes Attended: Yes (05/16/2016 11:20:Marily Moscoso RN) Tubal Ligation: No (05/16/2016 11:20:Marily Moscoso RN) Tubal Authorization Signed: N/A (05/16/2016 11:20:Marily Moscoso RN) Consent: N/A (05/16/2016 11:20:Marily Moscoso RN) Consent Signed: N/A (05/16/2016 11:20:Marily Moscoso RN) Pain Management Plans: Epidural (05/16/2016 11:20:Marily Moscoso RN) Support Person: Jaron Castellanos (05/16/2016 11:20:Marily Moscoso RN) Support Person Relationship: (05/16/2016 11:20:Marily Moscoso RN) Cultural/Spritual Practice: No (05/16/2016 11:20:Marily Moscoso RN) Spir/Cult Dietary Needs: No (05/16/2016 11:20:Marily Moscoso RN) LIVING SITUATION/DISCHARGE PLAN Living Arrangements: House (05/16/2016 11:20:Marily Moscoso RN) Adequate Access to:: Electric; Heat; Refrigeration; Plumbing/Running water; Phone; Transportation (05/16/2016 11:20:Mraily Moscoso RN) WIC Program: Yes (05/16/2016 11:20:Marily Moscoso RN) Discharge Vp Lab Person: Jaron Castellanos (05/16/2016 11:20:Marily Moscoso RN) Person to Help after Discharge: Jaron Castellanos (05/16/2016 11:20:Marily Moscoso RN) Currently Using Commun Resources: Yes (05/16/2016 11:20:Marily Moscoso RN) Specify Current Resource Used: WIC (05/16/2016 11:20:Marily Moscoso RN) Car Seat for Discharge: Yes (05/16/2016 11:20:Marily Moscoso RN) Adoption Requested: No (05/16/2016 11:20:Marily Moscoso RN) Pt Contact w/ Post : N/A (05/16/2016 11:20:Marily Moscoso RN) LABS Blood Type: AB Positive (05/16/2016 11:20:Rosalia Hampton RN) Antibody Screen: Negative (05/16/2016 11:20:Rosalia Hampton RN) Rho(G) this : Not Applicable (05/16/2016 11:20:Rosalia Hampton RN) Hemoglobin: 11.8 L (06/16/2016 21:40:QS system process) Hematocrit: 34.7 L (06/16/2016 21:40:QS system process) MCV: 95 (06/16/2016 21:40:QS system process) Group Beta Strep: Negative (05/16/2016 11:20:Rosalia Hampton RN) Gonorrhea: Negative (05/16/2016 11:20:Rosalia Hampton RN) Chlamydia: Negative (05/16/2016 11:20:Rosalia Hampton RN) RPR/VDRL: Nonreactive (05/16/2016 11:20:Rosalia Hampton RN) HIV Results: Negative (05/16/2016 11:20:Rosalia Hampton RN) Hepatitis B: Negative (05/16/2016 11:20:Rosalia Hampton RN) Rubella: Immune (05/16/2016 11:20:Rosalia Hampton RN) OB/PREVIOUS HISTORY Previous Procedures: None (05/16/2016 11:20:Rosalia Hampton RN) Current Procedures: Ultrasound; NST (05/16/2016 11:20:Marily Moscoso RN) History of Previous : No (05/16/2016 11:20:Marily Moscoso RN) History of Gestational Diabetes: No (05/16/2016 11:20:Marily Moscoso RN) History of PIH: No (05/16/2016 11:20:Marily Moscoso RN) History of Incompetent Cervix: No (05/16/2016 11:20:Marily Moscoso RN) History of Placenta Previa/Abrup: No (05/16/2016 11:20:Marily Moscoso RN) History of Macrosomia: No (05/16/2016 11:20:Marily Moscoso RN) History of IUGR: No (05/16/2016 11:20:Marily Moscoso RN) History of Hemorrhage: No (05/16/2016 11:20:Marily Moscoso RN) History of Loss/Stillborn: No (05/16/2016 11:20:Marily Moscoso RN) History of : No (05/16/2016 11:20:Marily Moscoso RN) History of D (Rh) Sensitization: No (05/16/2016 11:20:Marily Moscoso RN) History Recurrent Loss/Stillborn: No (05/16/2016 11:20:Marily Moscoso RN) History Depression/PP Depression: No (05/16/2016 11:20:Marily Moscoso RN) History of Uterine Anomaly/NISA: No (05/16/2016 11:20:Marily Moscoso RN) History of Infertility: No (05/16/2016 11:20:Marily Moscoso RN) History of ART Treatment: No (05/16/2016 11:20:Marily Moscoso RN) History of NISA: No (05/16/2016 11:20:Marily Moscoso RN) Comments Obstetrical History: G1: AFP was elevated but further testing proved no problems with spina bifida (05/16/2016 11:20:Marily Moscoso RN) MEDICAL HISTORY Med Hx Diabetes: No (05/16/2016 11:20:Marily Moscoso RN) Med Hx Hypertension: No (05/16/2016 11:20:Marily Moscoso RN) Med Hx Heart Disease: No (05/16/2016 11:20:Marily Moscoso RN) Med Hx Autoimmune Disorder: No (05/16/2016 11:20:Marily Moscoso RN) Med Hx Kidney Disease/UTI: No (05/16/2016 11:20:Marily Moscoso RN) Med Hx Neurologic/Epilepsy: No (05/16/2016 11:20:Marily Moscoso RN) Med Hx Psychiatric Disorders: No (05/16/2016 11:20:Marily Moscoso RN) Med Hx Hepatitis/Liver Disease: No (05/16/2016 11:20:Marily Moscoso RN) Med Hx Varicosities/Phlebitis: No (05/16/2016 11:20:Marily Moscoso RN) Med Hx Thyroid Dysfunction: No (05/16/2016 11:20:Marily Moscoso RN) Med Hx Trauma/Violence: No (05/16/2016 11:20:Marily Moscoso RN) Med Hx Blood Transfusion: No (05/16/2016 11:20:Marily Moscoso RN) Med Hx Pulmonary (Asthma,TB): No (05/16/2016 11:20:Marily Moscoso RN) Med Hx Breast: No (05/16/2016 11:20:Marily Moscoso RN) Med Hx SIGNALS INTELLIGENCE ANALYSIS MANAGER Surgery: No (05/16/2016 11:20:Marily Moscoso RN) Med Hx Hospitalization/Surgery: No (05/16/2016 11:20:Marily Moscoso RN) Med Hx Anesthetic Complications: No (05/16/2016 11:20:Marily Moscoso RN) Med Hx Abnormal Pap Smear: No (05/16/2016 11:20:Marily Moscoso RN) Other Medical Diseases: No (05/16/2016 11:20:Marily Moscoso RN) Med Hx Significant Family Hx: No (05/16/2016 11:20:Marily Moscoso RN) INFECTIOUS HISTORY Inf Hx Gonorrhea: No (05/16/2016 11:20:Marily Moscoso RN) Inf Hx Chlamydia: No (05/16/2016 11:20:Marily Moscoso RN) Inf Hx Syphilis: No (05/16/2016 11:20:Marily Moscoso RN) Inf Hx HIV/AIDS: No (05/16/2016 11:20:Marily Moscoso RN) Inf Hx Human Papilloma Virus: No (05/16/2016 11:20:Marily Moscoso RN) Inf Hx Pt/Partner Genital Herpes: No (05/16/2016 11:20:Marily Moscoso RN) Inf Hx Tuberculosis/Exposure: No (05/16/2016 11:20:Marily Moscoso RN) Inf Hx Hepatitis B,C: No (05/16/2016 11:20:Marily Moscoso RN) Inf Hx Rash or Viral Illness: No (05/16/2016 11:20:Marily Moscoso RN) GENETIC HISTORY Gen Hx Age >=35 at [place]: No (05/16/2016 11:20:Marily Moscoso RN) Gen Hx Thalassemia: No (05/16/2016 11:20:Marily Moscoso RN) Gen Hx Congenital Heart Defect: No (05/16/2016 11:20:Marily Moscoso RN) Gen Hx Neural Tube Defect: No (05/16/2016 11:20:Marily Moscoso RN) Gen Hx Down's Syndrome: No (05/16/2016 11:20:Marily Moscoso RN) Gen Hx Jamie-Sachs: No (05/16/2016 11:20:Marily Moscoso RN) Gen Hx Anton: No (05/16/2016 11:20:Marily Moscoso RN) Gen Hx Familial Dysautonomia: No (05/16/2016 11:20:Marily Moscoso RN) Gen Hx Sickle Cell Disease/Trait: Yes (05/16/2016 11:20:Marily oMscoso RN) Gen Hx Hemophilia/Blood Disorder: No (05/16/2016 11:20:Marily Moscoso RN) Gen Hx Muscular Dystrophy: No (05/16/2016 11:20:Marily Moscoso RN) Gen Hx Cystic Fibrosis: No (05/16/2016 11:20:Marily Moscoso RN) Gen Hx Huntingtons Chorea: No (05/16/2016 11:20:Marily Moscoso RN) Gen Hx Mental Retardation/Autism: No (05/16/2016 11:20:Marily Moscoso RN) Gen Hx Tested for Fragile X: No (05/16/2016 11:20:Marily Moscoso RN) Gen Hx Other Inher/Chromosomal: No (05/16/2016 11:20:Marily Moscoso RN) Gen Hx Maternal Metabolic DO: No (05/16/2016 11:20:Marily Moscoso RN) Gen Hx Pt Father or FOB Defect: No (05/16/2016 11:20:Marily Moscoso RN) Gen Hx Other Genetic History: No (05/16/2016 11:20:Marily Moscoso RN) Gen Hx Drugs/Meds since LMP: Yes (05/16/2016 11:20:Marily Moscoso RN) Gen Hx Medications: PNV (05/16/2016 11:20:Marily Moscoso RN) Details of Genetic History: FOB has sickle cell trait (05/16/2016 11:20:Marily Moscoso RN)
--- NOTE | 2016-06-18 06:15 | L&D Care Plan ---
LD CARE PLANS Datetime Report Generated by CPN: 06/18/2016 06:15 Datetime: 06/16/2016 20:31 Pain State: Risk For (Rosalia Hampton RN) Related To: Labor and Delivery Process; Treatment and Procedures (Rosalia Hampton RN) Goal(s): Patients Pain will be Assessed and Managed; Patient will Verbalize Adequate Relief of Pain or the Ability to Wendel with Current Pain (Rosalia Hampton RN) Interventions: Assess Pain Severity on Scale of 0 (None) to 5 (Severe); Assess Type, Location and Intensity of Pain Each Time Client Reports Discomfort and Notify Provider if Unusal Pain Develops; Encourage Proper Breathing and Relaxation Techniques; Offer Alternatives Such as Repositioning, Calm Environment, Massages, Diversional Activities, Ice Pack, Splinting, and Ambulation; Administer Analgesics as Ordered; Assist with Epidural Placement as Appropriate; Evaluate Therapeutic Effectiveness of Medication and Treatments (Rosalia Hampton RN) Outcome: Patient will Report Absence or Relief of Pain Consistent with Established Pain Goal (Rosalia Hampton RN) Status: Ongoing (Rosalia Hampton RN) Outcome: Patient will have a Decrease in Signs and Symptoms of Discomfort (Rosalia Hampton RN) Status: Ongoing (Rosalia Hampton RN) Outcome: Pain will be Controlled During Procedures (Rosalia Hampton RN) Status: Ongoing (Rosalia Hampton RN) Anxiety State: Actual (Rosalia Hampton RN) Related To: Labor and Delivery Process; Fear of Unknown; Situational Crisis; Significant Life Event (Rosalia Hampton RN) Goal(s): Patient will have Decreased Anxiety and be able to Function at Acceptable Levels (Rosalia Hampton RN) Interventions: Assess Verbal and Nonverbal Behavioral Indicators of Anxiety; Assist Patient to Identify and Verbalize Symptoms of Anxiety; Identify and Demonstrate Techniques to Control Anxiety; Assist Patient with Coping Mechanisms to Manage Anxiety; Provide Theraputic Touch for the Patient; Explain to Patient, Using a Calm Reassuring Approach and Nonmedical Terms, All Activities, Procedures, and Concerns; Instruct Patient and Family about Post Discharge Care, Limitations, Symptoms to Report and Resources Available (Rosalia Hampton RN) Outcome: Patient will Identify, Verbalize and Demonstrate Techniques to Control Anxiety (Rosalia Hampton RN) Status: Ongoing (Rosalia Hampton RN) Outcome: Patient's Posture, Facial Expressions, Gestures and Activity Level will Reflect Decreased Anxiety (Rosalia Hampton RN) Status: Ongoing (Rosalia Hampton RN) Outcome: Patient will Verbalize a Sense of Control and/or Acceptance of the Situation (Rosalia Hampton RN) Status: Ongoing (Rosalia Hampton RN) Outcome: Patient will Identify and Utilize Support Person (Rosalia Hampton RN) Status: Ongoing (Rosalia Hampton RN) Knowledge Deficit State: Actual (Rosalia Hampton RN) Related To: Labor and Delivery Process; Impending Alterations in Family Dynamics (Rosalia Hampton RN) Goal(s): Patient will Accurately Verbalize Understanding of Plan of Care and Treatment; Patient and Family will Accurately Verbalize Understanding of the Disease Process (Rosalia Hampton RN) Interventions: Assess Motivation and Willingness of Patient/Family to Learn; Assess Preferred Learning Mode: One to One Instruction, Reading, Videos, Group Discussion or Demonstration; Assess Barriers to Learning: Pain, Emotional State, Language Barrier, Cognitive Impairment, Visual or Hearing Deficits; Assess Patient and Family Knowledge of Disease Process, Medications and Treatment; Discuss Therapy and/or Treatment Options, Describe Rationale Behind Management, Therapy and Treatment Recommendations; Instruct Patient and Family on Signs and Symptoms to Report; Instruct Patient and Family on Medication Effects and Side Effects; Provide Appropriate and Timely Education Using Multiple Techniques; Provide Patient and Family with Support Group Information and Resources; Give Clear and Thorough Explanations and Demonstrations (Rosalia Hampton RN) Outcome: Patient and Family will Verbalize Understanding of Condition, Treatment and Signs and Symptoms to Report (Rosalia Hampton RN) Status: Ongoing (Rosalia Hampton RN) Outcome: Patient will Identify Perceived Learning Needs and Express Motivation to Learn (Rosalia Hampton RN) Status: Ongoing (Rosalia Hampton RN) Outcome: Patient will Verbalize Understanding of Desired Content, and/or Performs Desired Skill Prior to Discharge (Rosalia Hampton RN) Status: Ongoing (Rosalia Hampton RN) Infection State: Risk For (Rosalia Hampton RN) Related To: Premature/Prolonged Rupture of Membranes; Invasive Procedures; Altered Tissue Integrity (Rosalia Hampton RN) Goal(s): The Patient will be Free of Infection, Vital Signs Stable and Lab Work within Normal Parameters (Rosalia Hampton RN) Interventions: Instruct and Reinforce Proper Handwashing, Hygiene, and Care Techniques to Patient and Family; Monitor Vital Signs; Monitor Patient for the Following Signs of Infection: Fever, Abdominal Tenderness, Unusual Discharge; Monitor Aminiotic Fluid, Urine and Lochia for Color and Odor; Observe Wounds, Incisions and Invasive Line Sites for Redness, Drainage and Edema; Assess IV Sites per Hospital Policy; Monitor Lab and Test Results and Notify Provider of Abnormal Findings; Assess Nutritional Status and Promote Good Nutrition (Rosalia Hampton RN) Outcome: Patient will Remain Free of Infection (Rosalia Hampton RN) Status: Ongoing (Rosalia Hampton RN) Outcome: Infection will be Recognized Early to Allow for Prompt Treatment (Rosalia Hampton RN) Status: Ongoing (Rosalia Hampton RN) Outcome: Patient will have Vital Signs Within Expected Range (Rosalia Hampton RN) Status: Ongoing (Rosalia Hampton RN) Fluid Volume State: Risk For (Rosalia Hampton RN) Related To: Prolonged Labor or Induction (Rosalia Hampton RN) Goal(s): Patient will Achieve and Maintain a Balanced Fluid Volume Status; Hemodynamically Stable (Rosalia Hampton RN) Interventions: Monitor Vital Signs; Auscultate Breath Sounds; Monitor Patient for Skin Turgor, Mucous Membranes, Dry Skin, Weakness, Headaches and Confusion; Provide Oral Fluids as Ordered; Initiate and Maintain Intravenous Fluids as Ordered; Monitor Intake and Output as Indicated Per Patient Status; Accurately Measure Blood Loss; Monitor Lab and Test Results as Obtained and Notify Provider of Abnormal Findings; Monitor Patient's Weight (Rosalia Hampton RN) Outcome: Patient will have Clear Lung Sounds (Rosalia Hampton RN) Status: Ongoing (Rosalia Hampton RN) Outcome: Patient will have Vital Signs within Expected Range (Rosalia Hampton RN) Status: Ongoing (Rosalia Hampton RN) Outcome: Urine Output will be within Expected Range (Rosalia Hampton RN) Status: Ongoing (Rosalia Hampton RN) Outcome: Patient will have Minimal Generalized or Upper Extremity Edema (Rosalia Hampton RN) Status: Ongoing (Rosalia Hampton RN) Injury State: Risk For (Rosalia Hampton RN) Related To: Labor and Delivery Process (Rosalia Hampton RN) Goal(s): Patient will Remain Free from Injury (Rosalia Hampton RN) Interventions: Monitoring as per Hospital Protocol; Assess Neurological Status; Perform Risk Assessment of Patients with Induction and ; Perform Fall Risk Assessment and Prevention per Hospital Protocol; Perform DVT Risk Assessment and Prophylaxis per Hospital Protocol; Ensure that Oxygen, Suction, and Resuscitation Medications and Equipment are Readily Available; Confirm Patient ID Prior to Procedure(s) and Medication Administration per Hospital Policy (Rosalia Hampton RN) Outcome: Successful Fall Risk Prevention (Rosalia Hampton RN) Status: Ongoing (Rosalia Hampton RN) Outcome: Patient will Deliver without Adverse Sequela (Rosalia Hampton RN) Status: Ongoing (Rosalia Hampton RN) Outcome: Patient's Neurological Status will Remain Stable (Roslaia Hampton RN) Status: Ongoing (Rosalia Hampton RN) Impaired Skin Integrity State: Risk For (Rosalia Hampton RN) Related To: Vaginal Delivery; Altered Tissue Integrity; Invasive Procedures (Rosalia Hampton RN) Goal(s): Patient will Maintain Optimal Skin Integrity, Free of Breakdown, Injury or Infection (Rosalia Hampton RN) Interventions: Complete Screening for Pressure Ulcer Risk and Initiate Protocol per Hospital Policy; Monitor Site of Skin Impairment for Color Changes, Redness, Swelling, Warmth, Pain or Other Signs of Infection; Encourage and Assist with Position Changes; Monitor Patient's Mobility Status; Provide Adequate Nutrition and Fluids; Teach Patient Appropriate Hygienic Care; Teach Patient/Family Skin Care Management (Rosalia Hampton RN) Outcome: Patient will not have Evidence of Injury Such as Skin Breakdown, Scrapes, Cuts, or Bruising (Rosalia Hampton RN) Status: Ongoing (Rosalia Hampton RN) Outcome: Patient will Report Any Altered Sensation or Pain at Site of Skin Impairment (Rosalia Hampton RN) Status: Ongoing (Rosalia Hampton RN) Outcome: Patients Incisions and Wounds will be without Signs or Symptoms of Infection (Rosalia Hampton RN) Status: Ongoing (Rosalia Hampton RN) Outcome: Patient will Demonstrate Understanding of Plan to Heal Skin and Prevent Reinjury and Verbalize Risk Factors (Rosalia Hampton RN) Status: Ongoing (Rosalia Hampton RN)
[2016-06-18 06:51] LABS: HEMOGLOBIN 9.8 g/dL (12.0-15.5); HGB HCT DIFFERENCE 0.4; MEAN CORPUSCULAR HEMOGLOBIN 32.3 pg (27.0-33.4); MEAN CORPUSCULAR HGB CONC 33.7 g/dL (32.0-36.0); MEAN CORPUSCULAR VOLUME 96 fl (80-97); RED BLOOD COUNT 3.03 10^6/uL (3.72-5.28); RED CELL DISTRIBUTION WIDTH 14.5 % (11.5-14.0); WHITE BLOOD COUNT 10.7 10^3/uL (4.0-10.5)
[2016-06-18] MEDS: PRENATAL VITAMIN W-O CA NO5/FE FUMARATE/FA CAPSULE PO SCH (09:31)
[2016-06-18] MEDS: DOCUSATE SODIUM 100 MG CAPSULE PO SCH ×2 (09:31→18:02)
--- NOTE | 2016-06-18 11:27 | PDOC PROGRESS REPORT ---
Subjective-OB Subjective: Post Delivery Day: 1 21 year old . and Voiding without difficulty. Denies any needs at this time Physical Exam (OB) Vital Signs: Temp Pulse Resp BP Pulse Ox 97.6 F 97 20 125/79 100 06/18/16 03:59 06/18/16 03:59 06/18/16 03:59 06/18/16 03:59 06/18/16 03:59 Intake & Output 06/17/16 06/18/16 06/19/16 06:59 06:59 06:59 Intake Total 1000 Output Total 2350 Balance -1350 Weight 176 kg - General General Appearance: Appears well In distress: None - Dressing Removed: No Incision: Dressing Closure Type: opsite - Lochia Lochia Amount: Scant < 10 ml Lochia Color: Rubra/Red - Abdomen Description: Soft, Round Hernia Present: No Bowel Sounds: Hypoactive Flatus Presence: Absent Stool: No Fundal Description: Firm, Midline Fundal Height: u/u - u/2 - Respiratory Respiratory Status: No respiratory distress - Extremities Upper extremity: Normal inspection Lower extremities: Normal inspection - Psychological Associated symptoms: Normal affect, Normal mood - bonding well with baby Objective-Diagnostic Laboratory: 06/18/16 06:28 06/18/16 06:28 WBC 10.7 H RBC 3.03 L Hgb 9.8 L Hct 29.0 L MCV 96 MCH 32.3 MCHC 33.7 RDW 14.5 H Plt Count 170 Assessment and Plan(PN) - Assessment and Plan (1) Term delivered Is this a current diagnosis for this admission?: YesPlan: continue stay (2) Failed induction of labor Qualifiers: Failed induction of labor type: other Qualified Code(s): O61.8 - Other failed induction of labor Is this a current diagnosis for this admission?: YesPlan: continue stay (3) Delivery by elective caesarean section Is this a current diagnosis for this admission?: YesPlan: continue stay, begin ambulating Plan:: continue stay - Time Spent with Patient Time with patient: 15-25 minutes Medications reviewed and adjusted accordingly: Yes - Disposition Anticipated Discharge: Home Within: within 24 hours
[2016-06-18] MEDS: OXYCODONE-ACETAMINOPHEN 5-325 MG TABLET PO PRN (13:59)
[2016-06-18] MEDS ORDERED: INFLUENZA ADLT QUAD (36MOS+) 2016-17 VAC 0.5 ML SYR IM PRN (19:32)
[2016-06-19] MEDS: IBUPROFEN 800 MG TABLET PO SCH ×3 (00:11→12:08)
[2016-06-19] MEDS: OXYCODONE-ACETAMINOPHEN 5-325 MG TABLET PO PRN (02:02)
[2016-06-19 08:43] VITALS: BP 122/79
--- NOTE | 2016-06-19 08:44 | PDOC PROGRESS REPORT ---
Subjective-OB Subjective: Post Delivery Day: 21 year old. Denies any needs at this time. Ready to go home. Physical Exam (OB) Vital Signs: Temp Pulse Resp BP Pulse Ox 97.6 F 83 18 109/66 100 06/19/16 03:57 06/19/16 03:57 06/19/16 03:57 06/19/16 03:57 06/19/16 03:57 Intake & Output 06/18/16 06/19/16 06/20/16 06:59 06:59 06:59 Intake Total 1000 1750 Output Total 2350 Balance -1350 1750 Weight 176 kg - Dressing Removed: No Incision: Dressing Closure Type: opsite - Lochia Lochia Amount: Scant < 10 ml Lochia Color: Rubra/Red - Abdomen Description: Soft, Round Hernia Present: No Bowel Sounds: Normoactive Flatus Presence: Present Stool: No Fundal Description: Firm, Midline Fundal Height: u/u - u/2 Objective-Diagnostic Laboratory: 06/18/16 06:28 Assessment and Plan(PN) - Time Spent with Patient Medications reviewed and adjusted accordingly: Yes - Disposition Anticipated Discharge: Home
--- NOTE | 2016-06-19 08:54 | PDOC DISCHARGE SUMMARY ---
Final Diagnosis Discharge Date: 06/19/16 - Final Diagnosis (1) Delivery by elective caesarean section Is this a current diagnosis for this admission?: Yes (2) Failed induction of labor Is this a current diagnosis for this admission?: Yes (3) Term delivered Is this a current diagnosis for this admission?: Yes Discharge Data - Discharge Medication Home Medications: Pnv95/Iron Fum/Folic Acid [ Caplet] 1 tab PO DAILY 05/16/16 Docusate Sodium [Colace 100 mg Capsule] 100 mg PO BID #30 capsule 06/19/16 Ibuprofen [Motrin 800 mg Tablet] 800 mg PO Q6 #30 tablet 06/19/16 Oxycodone HCl/Acetaminophen [Percocet 5-325 mg Tablet] 1 tab PO Q4HP PRN #20 tablet 06/19/16 Gestational Age: 39.0 wks Reason(s) for Admission: Induction of Labor, PROM Procedures: Ultrasound Intrapartum Procedure(s): : Low Cervical, Transverse - Landis Data Baby 1 Female at 1 minute: 9 at 5 minutes: 9 Weight: 3.118 kg Home with Mother: Yes Complications: No - Diagnosis Test Laboratory: Temp Pulse Resp BP Pulse Ox 97.8 F 103 H 16 122/79 93 06/19/16 08:39 06/19/16 08:39 06/19/16 08:39 06/19/16 08:39 06/19/16 08:39 06/16/16 06/16/16 06/18/16 20:00 21:40 06:28 RBC 3.67 L 3.03 L Hgb 11.8 L 9.8 L Hct 34.7 L 29.0 L Urine Opiates Screen NEGATIVE - Discharge information/Instructions Discharge Activity: Activity As Tolerated, Balance Activity w/Rest, Pelvic Rest , Slowly Increase Activity, No tub bath Discharge Diet: Regular Disposition: HOME, SELF-CARE Follow up with: [facility] in: 1, Weeks
[2016-06-19] MEDS: PRENATAL VITAMIN W-O CA NO5/FE FUMARATE/FA CAPSULE PO SCH (09:20)
[2016-06-19] MEDS: DOCUSATE SODIUM 100 MG CAPSULE PO SCH (09:21)
== END 2016-06-19 12:44 | disposition home or self-care (01) | DRG 766 ==
LOC: LC 19:50 → LR 20:38 → 2S 06-17 13:16
PROVIDERS: ADMIT Student in an Organized Health Care Education/Training Program; ATTEND Student in an Organized Health Care Education/Training Program
PROC: 10D00Z1 Extraction of Products of Conception, Low, Open Approach (ICD-10-PCS; principal; 2016-06-17)
DX: O42.92 Full-term premature rupture of membranes, unspecified as to length of time between rupture and onset of labor (principal); O64.0XX0 Obstructed labor due to incomplete rotation of fetal head, not applicable or unspecified; O62.2 Other uterine inertia; O61.8 Other failed induction of labor; Z3A.38 38 weeks gestation of pregnancy; Z37.0 Single live birth
CPT/HCPCS: 1961; 36415; 80307; 81005; 84112; 85025; 85027; 86592; 86850; 86900; 86901; 88307; 90686; 94760; 94799; J0131; J0690; J1170; J2175; J2210; J2250; J2270; J2405; J2590; J2704; J3010; J3490

== ENCOUNTER 2016-09-18 12:05 | Emergency (ER) | payer OTHER ==
[2016-09-18] MEDS ORDERED: LOPERAMIDE HCL 2 MG CAPSULE PO ONE (13:49)
[2016-09-18] MEDS ORDERED: ONDANSETRON 4 MG TAB.RAPDIS PO ONE (13:49)
--- NOTE | 2016-09-18 13:49 | ER Document Report ---
ED GI/ - General Chief Complaint: Abdominal Pain Stated Complaint: ABDOMINAL PAIN,NAUSEA,DIARRHEA Time Seen by Provider: 09/18/16 13:45 TRAVEL OUTSIDE OF THE [place] IN LAST 30 DAYS: No - Related Data Allergies/Adverse Reactions: No Known Allergies Allergy (Verified 09/18/16 13:42) Past Medical History - Social History Patient has suicidal ideation: No Patient has homicidal ideation: No Renal/ Medical History: Denies: Hx Peritoneal Dialysis Physical Exam - Vital signs Vitals: Temp Pulse Resp BP Pulse Ox 98.9 F 94 14 110/69 98 09/18/16 12:09 09/18/16 12:09 09/18/16 12:09 09/18/16 12:09 09/18/16 12:09 Course - Vital Signs Vital signs: Temp Pulse Resp BP Pulse Ox 98.9 F 94 14 110/69 98 09/18/16 12:09 09/18/16 12:09 09/18/16 12:09 09/18/16 12:09 09/18/16 12:09
--- NOTE | 2016-09-18 13:55 | ER Document Report ---
ED Medical Screen (RME) - General Chief Complaint: Abdominal Pain Stated Complaint: ABDOMINAL PAIN,NAUSEA,DIARRHEA Time Seen by Provider: 09/18/16 13:45 Mode of Arrival: Ambulatory Information source: Patient Notes: Patient presents with complaints of epigastric abdominal pain, diarrhea, headahce, dizziness, and nausea. Patient denies vomiting. Patient is currently breast feeding and had a delivery 3 months ago. Patient is not on any antibiotics or supplements. No hx of reflux or ulcers. TRAVEL OUTSIDE OF THE [place] IN LAST 30 DAYS: No - Related Data Allergies/Adverse Reactions: No Known Allergies Allergy (Verified 09/18/16 13:42) Past Medical History - General Information source: Patient - Social History Cigarette use (# per day): No Chew tobacco use (# tins/day): No Frequency of alcohol use: None Drug Abuse: None Renal/ Medical History: Denies: Hx Peritoneal Dialysis Review of Systems - Review of Systems Gastrointestinal: See HPI, Abdominal pain Physical Exam - Vital signs Vitals: Temp Pulse Resp BP Pulse Ox 98.9 F 94 14 110/69 98 09/18/16 12:09 09/18/16 12:09 09/18/16 12:09 09/18/16 12:09 09/18/16 12:09 Interpretation: Normal - General General appearance: Appears well, Alert - Abdominal Inspection: Normal Tenderness: Tender - epigastric tenderness to palpation Course - Vital Signs Vital signs: Temp Pulse Resp BP Pulse Ox 98.9 F 94 14 110/69 98 09/18/16 12:09 09/18/16 12:09 09/18/16 12:09 09/18/16 12:09 09/18/16 12:09 Scribe Documentation - Scribe Written by Rosa:: rosa Duran, 09/18/16, [id number] acting as scribe for :: Santana
[2016-09-18 14:36] LABS: ABSOLUTE EOSINOPHILS # (AUTO) 0.1 10^3/uL (0.0-0.6); ABSOLUTE LYMPHOCYTES (AUTO) 1.4 10^3/uL (0.5-4.7); ABSOLUTE MONOCYTES (AUTO) 0.4 10^3/uL (0.1-1.4); ABSOLUTE NEUT (AUTO) 2.6 10^3/uL (1.7-8.2); BASOPHILS % (AUTO) 0.4 % (0-2); EOSINOPHILS % (AUTO) 2.6 % (0-6); HEMATOCRIT 38.6 % (36.0-47.0); HEMOGLOBIN 12.6 g/dL (12.0-15.5); HGB HCT DIFFERENCE -0.8; LYMPHOCYTES % (AUTO) 30.6 % (13-45); MEAN CORPUSCULAR HEMOGLOBIN 29.6 pg (27.0-33.4); MEAN CORPUSCULAR HGB CONC 32.7 g/dL (32.0-36.0); MEAN CORPUSCULAR VOLUME 91 fl (80-97); MONOCYTES % (AUTO) 8.9 % (3-13); RED BLOOD COUNT 4.25 10^6/uL (3.72-5.28); RED CELL DISTRIBUTION WIDTH 13.6 % (11.5-14.0); SEGMENTED NEUTROPHILS % (AUTO) 57.5 % (42-78); WHITE BLOOD COUNT 4.6 10^3/uL (4.0-10.5)
[2016-09-18 14:47] LABS: ALANINE AMINOTRANSFERASE 40 U/L (9-52); ALBUMIN 4.3 g/dL (3.5-5.0); ALKALINE PHOSPHATASE 91 U/L (38-126); ANION GAP 14 (5-19); ASPARTATE AMINO TRANSFERASE 24 U/L (14-36); BILIRUBIN,DIRECT 0.4 mg/dL (0.0-0.4); BILIRUBIN,TOTAL 0.6 mg/dL (0.2-1.3); BLOOD UREA NITROGEN 12 mg/dL (7-20); CALCIUM 9.5 mg/dL (8.4-10.2); CARBON DIOXIDE 23 mmol/L (22-30); CHLORIDE 107 mmol/L (98-107); CREATININE RESULT 0.85 mg/dL (0.52-1.25); GLUCOSE 76 mg/dL (75-110); LIPASE 82.5 U/L (23-300); SODIUM 143.6 mmol/L (137-145); TOTAL PROTEIN 7.6 g/dL (6.3-8.2)
[2016-09-18 14:59] LABS: APPEARANCE,URINE SLIGHTLY-CLOUDY; BILIRUBIN,URINE NEGATIVE (NEGATIVE); GLUCOSE, URINE NEGATIVE (NEGATIVE); KETONES,URINE NEGATIVE (NEGATIVE); LEUKOCYTE ESTERASE,URINE NEGATIVE (NEGATIVE); NITRITE,URINE NEGATIVE (NEGATIVE); PROTEIN,URINE NEGATIVE (NEGATIVE); URINE SPECIFIC GRAVITY 1.017; UROBILINOGEN,URINE NEGATIVE mg/dL (<2.0)
--- NOTE | 2016-09-18 16:28 | ER Document Report ---
ED GI/ - General Mode of Arrival: Ambulatory Information source: Patient TRAVEL OUTSIDE OF THE [place] IN LAST 30 DAYS: No - HPI Patient complains to provider of: Abdominal pain Associated symptoms: Other - See above <THERESE QUIROGA - Last Filed: 09/18/16 16:40> - HPI Onset: Yesterday <PARUL GUZMÁN - Last Filed: 09/18/16 21:16> - General Chief Complaint: Abdominal Pain Stated Complaint: ABDOMINAL PAIN,NAUSEA,DIARRHEA Time Seen by Provider: 09/18/16 13:45 Notes: Patient presents with complaints of epigastric abdominal pain. Patient also complains of diarrhea, headache, dizziness, and nausea. Patient denies vomiting. Patient is currently breast feeding and had a delivery 3 months ago. Patient is not on any antibiotics or supplements. Patient has no history of reflux or ulcers. (THERESE QUIROGA) - Related Data Allergies/Adverse Reactions: No Known Allergies Allergy (Verified 09/18/16 13:42) Past Medical History - General Information source: Patient - Social History Smoking Status: Never Smoker Chew tobacco use (# tins/day): No Frequency of alcohol use: None Drug Abuse: None Family History: Reviewed & Not Pertinent Patient has suicidal ideation: No Patient has homicidal ideation: No <THERESE QUIROGA - Last Filed: 09/18/16 16:40> Review of Systems - Review of Systems Constitutional: No symptoms reported EENT: No symptoms reported Cardiovascular: See HPI, Dizziness Respiratory: No symptoms reported Gastrointestinal: See HPI, Abdominal pain, Diarrhea, Nausea. denies: Vomiting Genitourinary: No symptoms reported Female Genitourinary: No symptoms reported Musculoskeletal: No symptoms reported Skin: No symptoms reported Hematologic/Lymphatic: No symptoms reported Neurological/Psychological: See HPI, Headaches -: Yes All other systems reviewed and negative <THERESE QUIROGA - Last Filed: 09/18/16 16:40> Physical Exam - Vital signs Interpretation: Normal - General General appearance: Appears well, Alert - HEENT Head: Normocephalic, Atraumatic - Respiratory Respiratory status: No respiratory distress - Cardiovascular Rhythm: Regular - Abdominal Inspection: Normal Distension: No distension Bowel sounds: Normal Tenderness: Tender - Epigastric tenderness to palpation Organomegaly: No organomegaly - Extremities General upper extremity: Normal inspection General lower extremity: Normal inspection - Neurological Neuro grossly intact: Yes Cognition: Normal Orientation: AAOx4 Lindsay Coma Scale Eye Opening: Spontaneous Lindsay Coma Scale Verbal: Oriented Darren Coma Scale Motor: Obeys Commands Lindsay Coma Scale Total: 15 Speech: Normal - Psychological Associated symptoms: Normal affect, Normal mood - Skin Skin Temperature: Warm Skin Moisture: Dry Skin Color: Normal <THERESE QUIROGA - Last Filed: 09/18/16 16:40> - Abdominal Tenderness: Tender - Epigastric tenderness to palpation, mild. No: Guarding <PARUL GUZMÁN - Last Filed: 09/18/16 21:16> - Vital signs Vitals: Temp Pulse Resp BP Pulse Ox 98.9 F 94 14 110/69 98 09/18/16 12:09 09/18/16 12:09 09/18/16 12:09 09/18/16 12:09 09/18/16 12:09 Course - Laboratory Result Diagrams: 09/18/16 14:15 09/18/16 14:15 <THERESE QUIROGA - Last Filed: 09/18/16 16:40> - Laboratory Result Diagrams: 09/18/16 14:15 09/18/16 14:15 <PARUL GUZMÁN - Last Filed: 09/18/16 21:16> - Re-evaluation Re-evalutation: 09/18/16 16:33 CBC unremarkable, CMP unremarkable, no evidence of dehydration, cholecystitis or pancreatitis, urinalysis unremarkable, test negative. Patient will be given Zofran to take home. Encouraged to use Imodium for diarrhea. Start with gentle diet, return for worsening pain, fevers or any new or concerning symptoms. (PARUL GUZMÁN) - Vital Signs Vital signs: Temp Pulse Resp BP Pulse Ox 97.8 F 100 18 109/67 99 09/18/16 17:17 09/18/16 17:17 09/18/16 17:17 09/18/16 17:17 09/18/16 17:17 Discharge <THERESE QUIROGA - Last Filed: 09/18/16 16:40> <PARUL GUZMÁN - Last Filed: 09/18/16 21:16> - Discharge Clinical Impression: Nausea vomiting and diarrhea, Nonspecific abdominal pain Condition: Stable Disposition: HOME, SELF-CARE Instructions: Vomiting ([facility]), Diarrhea, Nonspecific ([facility]) Prescriptions: Ondansetron [Zofran Odt 4 mg Tablet] 1 - 2 tab PO Q4H PRN #15 tab.rapdis PRN Reason: For Nausea/Vomiting Forms: Return to Work Scribe Attestation: 09/18/16 21:16 I personally performed the services described in the documentation, reviewed and edited the documentation which was dictated to the scribe in my presence, and it accurately records my words and actions. (PARUL GUZMÁN) Scribe Documentation - Scribe Written by Rosa:: rosa Duran, 09/18/16, [id number] acting as scribe for :: Santana <THERESE QUIROGA - Last Filed: 09/18/16 16:40>
[2016-09-18 17:23] VITALS: BP 109/67
== END 2016-09-18 17:20 | disposition home or self-care (01) ==
LOC: ER 12:05
DX: R11.2 Nausea with vomiting, unspecified (principal); R19.7 Diarrhea, unspecified; R10.9 Unspecified abdominal pain; R10.13 Epigastric pain; R51 Headache; R42 Dizziness and giddiness
CPT/HCPCS: 99284; 36415; 83690; 85025; 81025; 80053; 81001; S0119